=== PATIENT | female | born 1945 | race Caucasian/White ===

== ENCOUNTER 2016-10-18 21:33 | Emergency (ER) | payer MEDICARE ==
[2016-10-18 22:40] LABS: #Basophils 0.2 thou/uL (0.0-0.2); #Eosinphils 0.3 thou/uL (0.0-0.7); #Lymphocytes 3.2 thou/uL (1.20-3.40); #Monocytes 1.1 thou/uL (0.11-0.59); #Neutrophils 9.6 thou/uL (1.40-6.50); %Basophils 1.6 % (0.0-1.0); %Eosinophils 2.4 % (0.0-10.0); %Lymphocytes 22.2 % (21.0-51.0); %Monocytes 7.6 % (0.0-10.0); %Neutrophils 66.3 % (42.0-75.0); Hemoglobin 13.8 g/dL (12.0-16.0); Mean Corpuscular HGB CONC 35.2 g/dL (32.0-36.0); Mean Corpuscular Hemoglobin 30.9 pg (27.0-31.0); Mean Corpuscular Volume 87.8 fl (81.0-99.0); Mean Platelet Volume 7.3 fL (7.4-10.4); Platelet Count 397 thou/uL (130-400); Red Blood Cell (RBC) Count 4.46 mill/uL (4.20-5.40); White Blood Cell (WBC) Count 14.5 thou/uL (4.8-10.8)
[2016-10-18 22:43] LABS: ALT (SGPT) 25 U/L (0-55); AST (SGOT) 22 U/L (5-34); Albumin 3.9 g/dL (3.4-4.8); Alkaline Phosphatase 80 U/L (40-150); Anion Gap 18 mmol/L (10-20); BUN (Urea Nitrogen) 9 mg/dL (9.8-20.1); Bilirubin, Total 0.5 mg/dL (0.2-1.2); Calc. Creatinine Clearance 0 mL/min (70-130); Calcium 9.3 mg/dL (7.8-10.44); Carbon Dioxide 27 mmol/L (23-31); Chloride 97 mmol/L (98-107); Estimated GFR-MDRD 72; Globulin 2.7 g/dL (2.4-3.5); Glucose 230 mg/dL (83-110); Protein, Total 6.6 g/dL (5.8-8.1); Sodium 139 mmol/L (136-145)
[2016-10-18 22:52] LABS: PTT 25.2 SEC (22.9-36.1); Prothrombin Time 13.3 SEC (12.0-14.7)
[2016-10-18 22:58] LABS: Potassium 2.7 mmol/L (3.5-5.1)
[2016-10-18] MEDS ORDERED: Potassium Chloride 20 MEQ TAB ONE (23:01)
[2016-10-18 23:07] LABS: CKMB 0.5 ng/mL (0-6.6); Troponin I Less than 0.010 ng/mL (< 0.028)
[2016-10-18] MEDS ORDERED: NS 0.9% w/ 40 MEQ KCL 1,000 ML IV ONE (23:21)
[2016-10-19 01:31] LABS: Bilirubin Negative (Negative); Blood, Urine Trace (Negative); Clarity Clear (Clear); Glucose, Urine (Dipstick) 250 mg/dL (Negative); Leukocyte Negative (Negative); Nitrite Negative (Negative); Protein, Urine (Dipstick) 30 mg/dL (Neg-Trace); Specific Gravity, Urine 1.015 (1.005-1.030); Urobilinogen 0.2 mg/dL (0.2-1.0)
[2016-10-19 01:37] LABS: Bacteria/HPF Rare-Few HPF (None Seen); Renal Epithelial 0-3 HPF (0-3); Squamous Epithelial 0-3 HPF (0-3); Transitional Epithelial 0-3 HPF (0-3)
[2016-10-19] MEDS ORDERED: Ciprofloxacin 500 MG TAB ONE (02:02)
--- NOTE | 2016-10-19 02:12 | ERRECORD ---
[facility] EMERGENCY RECORD HPI GENERAL (22:35 LLDO) CHIEF COMPLAINT: Patient presents for evaluation of came in by ems for vomiting, high bp, and headache. all these s-sx had resolved before arrival at the ed. pt now feels perfectly normal. did start taking a new medicine tonight and the sx started shortly after taking her first paroxetine dose. HISTORIAN: History provided by patient, History provided by patient's family, DAUGHTER. MECHANISM OF INJURY: Unknown mechanism, Mechanism of injury is unknown, No alcohol use associated with this incident, Drug use associated with this incident, No domestic violence associated with this incident. LOCATION: Symptoms are generalized. QUALITY: Pain is dull in nature, described as aching. SEVERITY: Maximum severity of symptoms moderate, Currently symptoms are moderate. TIME COURSE: Sudden onset of symptoms, Symptoms have resolved, are constant. RELIEVED BY: Patient's condition relieved by prescription medications, Patient's condition relieved by see triage note. ROS CONSTITUTIONAL: Historian reports fatigue. (22:40 LLDO) EYES: Negative eye review of systems, Historian denies eye pain, denies eye redness, denies eye discharge. (22:45 LLDO) ENT: Negative ears, nose, throat review of systems, Historian denies epistaxis, denies rhinorrhea, denies sinus pain, denies sore throat. (22:45 LLDO) CARDIOVASCULAR: Negative cardiovascular review of systems, Historian denies chest pain, no radiation, Historian denies diaphoresis, denies syncope. (22:45 LLDO) RESPIRATORY: Negative respiratory review of systems, Historian denies cough, denies shortness of breath, denies sputum. (22:45 LLDO) GI: Historian reports nausea, reports vomiting. (22:40 LLDO) GENITOURINARY FEMALE: Negative genitourinary review of systems, Historian denies dysuria, denies frequency, denies urgency. (22:45 LLDO) MUSCULOSKELETAL: Negative musculoskeletal review of systems, Historian denies arthralgias, denies back pain, denies injury, denies myalgias, denies neck pain. (22:45 LLDO) SKIN: Negative skin review of systems, Historian denies cellulitis, denies rash, denies skin changes, denies skin lesions. (22:45 LLDO) NEUROLOGIC: Historian denies confusion, denies dizziness, denies dysphasia, denies focal weakness, denies gait changes, reports headache, denies irritability, denies lethargy, denies mental status changes. (22:40 LLDO) HEMO/LYMPHATIC: Normal hematologic/lymphatic system review, &a-1R&a+25V*p+0X*[id number]*c202B*c15G*c2P*p-0X&a-25V&a+1R Name: Arlen Gan : 1945 F71 MedRec: [id number] AcctNum: [id number] Prepared: WedOct 19, 2016 02:16 by Interface Page 1 of 4 pMD [facility] EMERGENCY RECORD Historian denies abnormal blood clotting, denies gum bleeding, denies petechiae. (22:45 LLDO) ALLERGIC/IMMUNOLOGIC: Normal allergy/immunologic system review, Historian denies eczema, denies environmental allergies, denies food allergies. (22:45 LLDO) PSYCHIATRIC: Negative psychiatric review of systems, Historian denies alcohol abuse, denies anxiety, denies depression, denies drug abuse, denies hallucinations. (22:45 LLDO) NOTES: All systems reviewed, negative except as described above. (22:40 LLDO) PAST MEDICAL HISTORY MEDICAL HISTORY: Notes: HTN, DM. (22:05 JDEA) FEMALE SURGICAL HISTORY: Patient's surgical history is not relevant to the management of the case. (22:05 JDEA) PSYCHIATRIC HISTORY: Notes: depression. (22:05 JDEA) SOCIAL HISTORY: Patient denies alcohol use, Patient denies drug use, Patient has no smoking history, Lives at home, with family. (22:05 JDEA) NOTES: Nursing records reviewed, Agree with nursing records, Medication list reviewed. (22:44 LLDO) KNOWN ALLERGIES No Known Drug Allergy CURRENT MEDICATIONS lisinopril: TABLET : Strength - 20 mg : ORAL Patient Dose: 20 mg Oral once a day. (21:56 JDEA) PARoxetine HCl: TABLET : Strength - 10 mg : ORAL Patient Dose: 10 mg Oral once a day. (21:56 JDEA) metFORMIN: TABLET : Strength - 1,000 mg : ORAL Patient Dose: 1 tab(s) Oral 2 times a day (before meals). (21:57 JDEA) VITAL SIGNS VITAL SIGNS: BP: 175/82, Pulse: 107, Resp: 20, Temp: 96.8 (Oral), Pain: 0, O2 sat: 94 on Room Air, Time: 10/18/2016 21:41. (21:41 JDEA) BP: 168/74, Pulse: 94, Resp: 20, Pain: 0, O2 sat: 96 on RA, Time: 10/18/2016 23:56. (23:56 JDEA) BP: 152/78, Pulse: 90, Resp: 18, Pain: 0, O2 sat: 100 on Room Air, Time: 10/19/2016 01:24. (WedOct 19, 2016 01:24 JDEA) PHYSICAL EXAM CONSTITUTIONAL: Vital signs reviewed, Patient afebrile, Pulse, tachycardic, 107, Blood pressure, BP ELEVATED SLIGHTLY: 175/82, Respiratory rate normal, Patient appears non toxic, Patient appears in &a-1R&a+25V*p+0X*q0040E*c202B*c15G*c2P*p-0X&a-25V&a+1R Name: Arlen Gan : 1945 F71 MedRec: [id number] AcctNum: [id number] Prepared: WedOct 19, 2016 02:16 by Interface Page 2 of 4 pMD [facility] EMERGENCY RECORD pain, in moderate pain distress, but now pain is gone, Patient alert and oriented to person, place and time. (22:41 LLDO) HEAD: Head exam normal, Head exam included findings of head atraumatic, normocephalic. (22:45 LLDO) EYES: Eye exam normal, Eye exam included findings of eyelids normal to inspection, Pupils equally round and reactive to light, Extraocular muscles intact. (22:45 LLDO) ENT: ENT exam normal, Ear exam normal, Nose exam normal. (22:45 LLDO) NECK: Neck exam normal, Neck exam included findings of normal range of motion, Trachea midline, no meningeal signs, no tenderness. (22:45 LLDO) RESPIRATORY CHEST: Respiratory exam included findings of no respiratory distress, Breath sounds clear, Chest exam included findings of chest movement symmetrical, Chest expansion equal, no tenderness. (22:41 LLDO) CARDIOVASCULAR: Cardiovascular exam included findings of heart rate regular rate and rhythm, Heart sounds normal, Point of maximal impulse normal, Bilateral blood pressures normal in both arms. (22:41 LLDO) ABDOMEN FEMALE: Abdominal exam included findings of abdomen nontender, Bowel sounds normal, Liver normal, Spleen normal, no distension, no mass, no pulsatile masses, no peritoneal signs. (22:41 LLDO) BACK: Back exam normal, Back exam included findings of normal inspection, range of motion normal. (22:45 LLDO) UPPER EXTREMITY: Upper extremity exam normal, Upper extremity exam included findings of inspection normal, Range of motion normal. (22:45 LLDO) LOWER EXTREMITY: Lower extremity exam normal, Lower extremity exam included findings of inspection normal, Range of motion normal. (22:45 LLDO) NEURO: Blessing coma scale 15, Neuro exam findings include patient oriented to person, place and time, Speech normal, Gait normal, Memory normal, Cranial nerves intact, Deep tendon reflexes normal, no focal motor deficits, no focal sensory deficits, no cerebellar deficits, no nystagmus. (22:44 LLDO) SKIN: Skin exam normal, Skin exam included findings of skin warm, dry, and normal in color, no rash. (22:45 LLDO) PSYCHIATRIC: Psychiatric exam normal, Psychiatric exam included findings of patient oriented to person place and time, Normal affect. (22:45 LLDO) MEDICATION ADMINISTRATION SUMMARY Drug Name: Cipro tablet, Dose Ordered: 500 mg, Route: Oral, Status: Given, Time: 02:05 10/19/2016, Drug Name: *potassium chloride in 0.9%NaCl, Dose Ordered: 40 mEq, Route: IV Fluid Infusion, Status: Given, Time: 23:20 10/18/2016, &a-1R&a+25V*p+0X*u8040J*c202B*c15G*c2P*p-0X&a-25V&a+1R Name: Malik Arlen M : 1945 F71 MedRec: [id number] AcctNum: [id number] Prepared: WedOct 19, 2016 02:16 by Interface Page 3 of 4 pMD [facility] EMERGENCY RECORD Drug Name: K-Dur, Dose Ordered: 80 mg, Route: Oral, Status: Given, Time: 23:07 10/18/2016, *Additional information available in notes, Detailed record available in Medication Service section. PROBLEM LIST No recorded problems DIAGNOSIS (WedOct 19, 2016 01:59 LL) FINAL: PRIMARY: HYPOKALEMIA, ADDITIONAL: Type 2 Diabetes mellitus (NIDDM) - controlled with complications, UTI SITE NOT SPECIFIED. PRESCRIPTION (WedOct 19, 2016 02:02 LLDO) K-Dur: TABLET, EXT RELEASE, PARTICLES/CRYSTALS : 20 mEq : ORAL : Quantity: 1 Unit: tab(s) Route: ORAL Schedule: once a day (in the morning) Dispense: 60 Unit: tab(s) May substitute. Refills: 1 . NOTES: No Refills. Cipro tablet: TABLET : 500 mg : ORAL : Quantity: 1 Unit: tab(s) Route: ORAL Schedule: 2 times a day Dispense: 20 May substitute. Refills: No Refills . NOTES: ^s=No Refills No Refills. DISPOSITION PATIENT: Disposition Type: Discharge, Disposition: *Discharge Home. (WedOct 19, 2016 01:59 ABDIRASHID) Patient left the department. (WedOct 19, 2016 02:10 EMELY) Hood: EMELY=GONZÁLEZ Ansari, Lena MENDENHALL=MD Yuan, Michele &a-1R&a+25V*p+0X*y2223J*c202B*c15G*c2P*p-0X&a-25V&a+1R Name: Arlen Gan Adonay : 1945 F71 MedRec: [id number] AcctNum: [id number] Prepared: WedOct 19, 2016 02:16 by Interface Page 4 of 4 pMD [facility]TDD
--- NOTE | 2016-10-19 02:18 | PICIS ---
[facility] EMERGENCY RECORD TRIAGE ([place] Oct 18, 2016 21:44 JDEA) TRIAGE NOTES: PT IN FOR NAUSEA, NOTABLY HYPERTENSIVE FOR EMS, GIVEN ZOFRAN, NITRO, FLUIDS. ([place] Oct 18, 2016 21:44 JDEA) PATIENT: NAME: Arlen Gan, AGE: 71, GENDER: female, : Sat 1945, TIME OF GREET: WedOct 18, 2016 21:34, PREFERRED LANGUAGE: [place] Verdean, ETHNICITY: Not or , ECODE BILLING MAP: [facility], SSN: [id number], Zip Code: [address], KG WEIGHT: 70.31 (est.), , , PERSON ID: [id number], PCP: Jake LANG KERRY. ([place] Oct 18, 2016 21:44 JDEA) PHONE: . (22:16) COMPLAINT: NAUSEA, VOMITING. ([place] Oct 18, 2016 21:44 JDEA) ADMISSION: URGENCY: 2 Emergent, ADMISSION SOURCE: Home, TRANSPORT: AMBULANCE - [facility], BED: TRIAGE. ([place] Oct 18, 2016 21:44 JDEA) IMMUNIZATIONS: Flu vaccine up to date, Tetanus immunization up to date, Pneumococcal vaccine up to date. (22:05 JDEA) TRIAGE SCREENING: Patient denies suicidal ideation, Patient denies presence of domestic violence. (22:05 JDEA) PROVIDERS: TRIAGE NURSE: Lena Ansari RN. ([place] Oct 18, 2016 21:44 JDEA) VITAL SIGNS: BP 175/82, Pulse 107, Resp 20, Temp 96.8, (Oral), Pain 0, O2 Sat 94, on Room Air, Time 10/18/2016 21:41. (21:41 JDEA) PREVIOUS VISIT ALLERGIES: No Known Drug Allergy. ([place] Oct 18, 2016 21:44 JDEA) No Known Drug Allergy. (22:05 JDEA) KNOWN ALLERGIES No Known Drug Allergy CURRENT MEDICATIONS lisinopril: TABLET : Strength - 20 mg : ORAL Patient Dose: 20 mg Oral once a day. (21:56 JDEA) PARoxetine HCl: TABLET : Strength - 10 mg : ORAL Patient Dose: 10 mg Oral once a day. (21:56 JDEA) metFORMIN: TABLET : Strength - 1,000 mg : ORAL Patient Dose: 1 tab(s) Oral 2 times a day (before meals). (21:57 JDEA) VITAL SIGNS VITAL SIGNS: BP: 175/82, Pulse: 107, Resp: 20, Temp: 96.8 (Oral), Pain: 0, O2 sat: 94 on Room Air, Time: 10/18/2016 21:41. (21:41 JDEA) BP: 168/74, Pulse: 94, Resp: 20, Pain: 0, O2 sat: 96 on RA, Time: 10/18/2016 23:56. (23:56 JDEA) BP: 152/78, Pulse: 90, Resp: 18, Pain: 0, O2 sat: 100 on Room Air, Time: 10/19/2016 01:24. (WedOct 19, 2016 01:24 JDEA) &a-1R&a+25V*p+0X*p7736T*c202B*c15G*c2P*p-0X&a-25V&a+1R Name: Arlen Gan : 1945 F71 MedRec: [id number] AcctNum: [id number] Prepared: WedOct 19, 2016 02:21 by Interface Page 1 of 10 pMD [facility] EMERGENCY RECORD NURSING ASSESSMENT: CARDIOVASCULAR (22:08 JDEA) CONSTITUTIONAL: Complex assessment performed, Patient arrives, via stretcher, via [facility], Gait steady, History obtained from patient, Patient appears comfortable, Patient cooperative, Patient alert, Oriented to person, place and time, Skin warm, Skin dry, Skin normal in color, Mucous membranes pink, Mucous membranes moist, Patient complains of nausea and vomiting, pt in for complaints of nausea and vomiting and weakness, states that she had one episode and then felt better, ems states that she was hypertensive and not feeling well, they followed protocol for hypertension, administered Zofran, fluids of NS, nitro x 3, initial bp 194/114, s/p bp of 145/95. PAIN: denies pain at this time. CARDIOVASCULAR: Cardiovascular assessment findings include heart rate normal, Heart rhythm normal sinus, Heart sounds normal, S1, S2, Left radial pulse +3(easily palpated, considered normal), Right radial pulse +3(easily palpated, considered normal), Left dorsalis pedis pulse +3(easily palpated, considered normal), Right dorsalis pedis pulse +3(easily palpated, considered normal), No associated diaphoresis, no associated dyspnea. RESPIRATORY/CHEST: Breath sounds clear, Respiratory assessment findings include respiratory effort easy, Respirations regular, Conversing normally, Neck and chest exam findings include trachea midline, Chest expansion equal, Chest movement symmetrical, no signs of distress, no associated cough noted, no associated fever. NOTES: Patient tolerated procedure well. SAFETY: Side rails up, Cart/Stretcher in lowest position, Family at bedside, Call light within reach, Hospital ID band on. NURSING PROCEDURE: SENIOR ORACLE APPLICATIONS DEVELOPER (21:50 JDEA) PATIENT IDENTIFIER: Patient actively involved in identification process, Patient's identity verified by patient stating name, Patient's identity verified by patient stating date, Patient's identity verified by hospital ID bracelet. SENIOR ORACLE APPLICATIONS DEVELOPER: Cardiac monitoring indicated for ER INDICATION, Patient placed on secured entrance monitor, Patient placed on non-invasive blood pressure monitor, Patient placed on continuous pulse oximetry. FOLLOW-UP: After procedure, alarms set and on. NOTES: Patient tolerated procedure well. SAFETY: Side rails up, Cart/Stretcher in lowest position, Family at bedside, Call light within reach, Hospital ID band on. NURSING PROCEDURE: COMMUNICATIONS (22:59 JDEA) COMMUNICATIONS: Critical lab value, received at 2259, received from lab, Critical lab result: K 2.7, given to MD Bolden, results read back and verified. NOTES: Patient tolerated procedure well. SAFETY: Side rails up, Cart/Stretcher in lowest position, Family at bedside, Call light within reach, Hospital ID band on. &a-1R&a+25V*p+0X*d5858Q*c202B*c15G*c2P*p-0X&a-25V&a+1R Name: Arlen Gna : 1945 F71 MedRec: [id number] AcctNum: [id number] Prepared: WedOct 19, 2016 02:21 by Interface Page 2 of 10 pMD [facility] EMERGENCY RECORD NURSING PROCEDURE: DISCHARGE NOTE (WedOct 19, 2016 02:07 JDEA) DISCHARGE: Patient discharged to home, ambulating without assistance, family driving, accompanied by other family member, Summary of Care printed/ provided, Patient requested and was provided an electronic copy of Discharge Instructions, Transition record given to patient, Discharge instructions given to patient, Simple or moderate discharge teaching performed, Prescriptions given and instructions on side effects given, Above person(s) verbalized understanding of discharge instructions and follow-up care, Patient treated and evaluated by physician. BELONGINGS: Belongings and valuables with patient at time of discharge include:, Belongings remain with patient. NURSING PROCEDURE: EKG CHART (21:51 JDEA) PATIENT IDENTIFIER: Patient actively involved in identification process, Patient's identity verified by patient stating name, Patient's identity verified by patient stating date, Patient's identity verified by hospital ID bracelet. EK lead EKG performed on the left chest, done by LYDIA, first EKG. FOLLOW-UP: After procedure, EKG for interpretation given to Dr. MD BOLDEN. NOTES: Patient tolerated procedure well. SAFETY: Side rails up, Cart/Stretcher in lowest position, Family at bedside, Call light within reach, Hospital ID band on. NURSING PROCEDURE: IV (21:50 JDEA) PATIENT IDENITIFIER: Patient actively involved in identification process, Patient's identity verified by patient stating name, Patient's identity verified by patient stating date, Patient's identity verified by hospital ID bracelet. IV SITE 1: IV therapy indicated for hydration, IV therapy indicated for medication administration, IV established, to the left forearm, using a 20 gauge catheter, Saline lock established, Flushed with normal saline (mls): 10MLS, Notes: IT SUPPORT SPECIALIST. FOLLOW-UP SITE 1: After procedure, 2x3 ensure dressing applied, After procedure, no drainage at IV site, After procedure, no swelling at IV site, After procedure, no redness at IV site. NOTES: Patient tolerated procedure well. SAFETY: Side rails up, Cart/Stretcher in lowest position, Family at bedside, Call light within reach, Hospital ID band on. NURSING PROCEDURE: NURSE NOTES (23:56 JDEA) NURSES NOTES: Notes: pt aware currently awaiting disposition, family member at bedside at this time. denies needs for assist at this time. VITAL SIGNS: BP: 168, / 74, Pulse: 94, Resp: 20, Pain: 0, O2 sat: 96, on: RA, Time: 6. ORDER DETAILS &a-1R&a+25V*p+0X*z5319Q*c202B*c15G*c2P*p-0X&a-25V&a+1R Name: Arlen Gan : 1945 F71 MedRec: [id number] AcctNum: [id number] Prepared: WedOct 19, 2016 02:21 by Interface Page 3 of 10 pMD [facility] EMERGENCY RECORD Order Name: SENIOR ORACLE APPLICATIONS DEVELOPER ED, Status: Done, Time: 21:55 10/18/2016, User: EMELY, - Ordered for: Zenaida ., - Entered by: GONZÁLEZ Ansari, Lena - Tori Oct 18, 2016 21:55, - Quantity: 1, Order Name: Cardiac Profile w/CKMB & Troponin - I, Status: Active, Time: 22:34 10/18/2016, User: ABDIRASHID, - Ordered for: MD Bolden Lloyd, - Entered by: MD Bolden Lloyd [facility] Oct 18, 2016 22:34, - Quantity: 1, Order Name: CATH STRAIGHT ED, Status: Done, Time: 01:26 10/19/2016, User: EMELY, - Ordered for: MD Bolden Lloyd, - Entered by: GONZÁLEZ Ansari, Lena - [facility] Oct 19, 2016 01:26, - Quantity: 1, Order Name: CBC with Differential, Status: Active, Time: 22:00 10/18/2016, User: ABDIRASHID, - Ordered for: MD Bolden Lloyd, - Entered by: MD Bolden Lloyd Tori Oct 18, 2016 22:00, - Quantity: 1, Order Name: CK (CPK), Status: Active, Time: 22:34 10/18/2016, User: ABDIRASHID, - Ordered for: MD Bolden Lloyd, - Entered by: MD Bolden Lloyd - Sun Oct 18, 2016 22:34, - Quantity: 1, Order Name: Comprehensive Metabolic Panel, Status: Active, Time: 22:00 10/18/2016, User: ABDIRASHID, - Ordered for: MD Bolden Lloyd, - Entered by: MD Bolden Lloyd Tori Oct 18, 2016 22:00, - Quantity: 1, Order Name: Culture, Urine, Status: Active, Time: 22:00 10/18/2016, User: ABDIRASHID, - Ordered for: MD Bolden Lloyd, - Entered by: MD Bolden Lloyd Tori Oct 18, 2016 22:00, - Quantity: 1, Order Name: EKG 12 Lead in Emergency Room, Status: Active, Time: 21:55 10/18/2016, User: EMELY, - Ordered for: Ersmdo, ., - Entered by: GONZÁLEZ Ansari, [facility] Oct 18, 2016 21:55, - Quantity: 1, Order Name: ERRT Oxygen Usage ER, Status: Active, Time: 21:55 10/18/2016, User: EMELY, - Ordered for: Ersmdo, ., - Entered by: GONZÁLEZ Ansari, [facility] Oct 18, 2016 21:55, - Quantity: 1, Order Name: ERRT Pulse Oximeter ER, Status: Active, Time: 21:55 10/18/2016, User: EMELY, - Ordered for: Ersmdo, ., - Entered by: GONZÁLEZ Ansari, [facility] Oct 18, 2016 21:55, &a-1R&a+25V*p+0X*x4560Z*c202B*c15G*c2P*p-0X&a-25V&a+1R Name: Arlen Gan : 1945 F71 MedRec: [id number] AcctNum: [id number] Prepared: WedOct 19, 2016 02:21 by Interface Page 4 of 10 pMD [facility] EMERGENCY RECORD - Quantity: 1, Order Name: Protime with INR, Status: Active, Time: 22:34 10/18/2016, User: ABDIRASHID, - Ordered for: MD Bolden Lloyd, - Entered by: MD Bolden Lloyd Tori Oct 18, 2016 22:34, - Quantity: 1, Order Name: PTT, Status: Active, Time: 22:34 10/18/2016, User: ABDIRASHID, - Ordered for: MD Bolden Lloyd, - Entered by: MD Bolden Lloyd - Sun Oct 18, 2016 22:34, - Quantity: 1, Order Name: SALINE LOCK, Status: Done, Time: 21:55 10/18/2016, User: EMELY, - Ordered for: Tammy Estevez, - Entered by: GONZÁLEZ Ansari Justine - Sun Oct 18, 2016 21:55, - Quantity: 1, Order Name: Urinalysis w/ Rflx Microscopic, Status: Active, Time: 22:00 10/18/2016, User: ABDIRASHID, - Ordered for: MD Bolden Lloyd, - Entered by: MD Bolden Lloyd - Sun Oct 18, 2016 22:00, - Quantity: 1. MEDICATION ADMINISTRATION SUMMARY Drug Name: Cipro tablet, Dose Ordered: 500 mg, Route: Oral, Status: Given, Time: 02:05 10/19/2016, Drug Name: *potassium chloride in 0.9%NaCl, Dose Ordered: 40 mEq, Route: IV Fluid Infusion, Status: Given, Time: 23:20 10/18/2016, Drug Name: K-Dur, Dose Ordered: 80 mg, Route: Oral, Status: Given, Time: 23:07 10/18/2016, *Additional information available in notes, Detailed record available in Medication Service section. MEDICATION SERVICE Cipro tablet: Order: Cipro tablet (ciprofloxacin HCl) - Dose: 500 mg : Oral Schedule: Now Ordered by: Michele Bolden MD Entered by: Michele Bolden MD WedOct 19, 2016 02:00 , Acknowledged by: Lena Ansari RN WedOct 19, 2016 02:02 Documented as given by: Lena Ansari RN WedOct 19, 2016 02:05 Patient, Medication, Dose, Route and Time verified prior to administration. Amount given: 500mg, Site: Medication administered P.O., Correct patient, time, route, dose and medication confirmed prior to administration, Patient advised of actions and side-effects prior to administration, Allergies confirmed and medications reviewed prior to administration, Patient in position of comfort, Side rails up, Cart in lowest position, Family at bedside, Call light in reach. K-Dur: Order: K-Dur (potassium chloride) - Dose: 80 mg : Oral Schedule: Now &a-1R&a+25V*p+0X*w9024O*c202B*c15G*c2P*p-0X&a-25V&a+1R Name: Arlen Gan : 1945 F71 MedRec: [id number] AcctNum: [id number] Prepared: WedOct 19, 2016 02:21 by Interface Page 5 of 10 pMD [facility] EMERGENCY RECORD Ordered by: Michele Bolden MD Entered by: MD Tori Garcia Oct 18, 2016 22:59 , Acknowledged by: GONZÁLEZ Cisneros Oct 18, 2016 23:00 Documented as given by: GONZÁLEZ Cisneros Oct 18, 2016 23:07 Patient, Medication, Dose, Route and Time verified prior to administration. Amount given: 80mg, Site: Medication administered P.O., Correct patient, time, route, dose and medication confirmed prior to administration, Patient advised of actions and side-effects prior to administration, Allergies confirmed and medications reviewed prior to administration, Patient in position of comfort, Side rails up, Cart in lowest position, Family at bedside, Call light in reach. potassium chloride in 0.9%NaCl: Order: potassium chloride in 0.9%NaCl (potassium chloride/0.9 % sodium chloride) - Dose: 40 mEq : IV Fluid Infusion Notes: run in over 1 h Ordered by: Michele Bolden MD Entered by: MD Tori Garcia Oct 18, 2016 23:01 , Acknowledged by: GONZÁLEZ Cisneros Oct 18, 2016 23:20 Documented as given by: GONZÁLEZ Baird Oct 18, 2016 23:20 Patient, Medication, Dose, Route and Time verified prior to administration. Amount given: 40 MEQ IN 1000ML, IV SITE #1 IVPB or drip, initial infusion, Premixed, via primary tubing, on an IV pump, Catheter placement confirmed via flush prior to administration, IV site without signs or symptoms of infiltration during medication administration, No swelling during administration, No drainage during administration, IV flushed after administration, Correct patient, time, route, dose and medication confirmed prior to administration, Patient advised of actions and side-effects prior to administration, Allergies confirmed and medications reviewed prior to administration, Patient in position of comfort, Side rails up, Cart in lowest position, Family at bedside. : Follow Up : Response assessment performed, No signs or symptoms of allergic reaction noted, _IV SITE #1:_, IV fluid infusion discontinued, on WedOct 19, 2016 00:34, Total fluid hydration time IV site 1 1 hour, 15 minutes, ., Total amount infused: 1L. (WedOct 19, 2016 00:33 JDEA) HPI GENERAL (22:35 LLDO) CHIEF COMPLAINT: Patient presents for evaluation of came in by ems for vomiting, high bp, and headache. all these s-sx had resolved before arrival at the ed. pt now feels perfectly normal. did start taking a new medicine tonight and the sx started shortly after taking her first paroxetine dose. HISTORIAN: History provided by patient, History provided by patient's family, DAUGHTER. MECHANISM OF INJURY: Unknown mechanism, Mechanism of injury is unknown, No alcohol use associated with this incident, Drug use associated with this incident, No domestic &a-1R&a+25V*p+0X*t2365J*c202B*c15G*c2P*p-0X&a-25V&a+1R Name: Arlen Gan : 1945 F71 MedRec: [id number] AcctNum: [id number] Prepared: WedOct 19, 2016 02:21 by Interface Page 6 of 10 pMD [facility] EMERGENCY RECORD violence associated with this incident. LOCATION: Symptoms are generalized. QUALITY: Pain is dull in nature, described as aching. SEVERITY: Maximum severity of symptoms moderate, Currently symptoms are moderate. TIME COURSE: Sudden onset of symptoms, Symptoms have resolved, are constant. RELIEVED BY: Patient's condition relieved by prescription medications, Patient's condition relieved by see triage note. ROS CONSTITUTIONAL: Historian reports fatigue. (22:40 LLDO) EYES: Negative eye review of systems, Historian denies eye pain, denies eye redness, denies eye discharge. (22:45 LLDO) ENT: Negative ears, nose, throat review of systems, Historian denies epistaxis, denies rhinorrhea, denies sinus pain, denies sore throat. (22:45 LLDO) CARDIOVASCULAR: Negative cardiovascular review of systems, Historian denies chest pain, no radiation, Historian denies diaphoresis, denies syncope. (22:45 LLDO) RESPIRATORY: Negative respiratory review of systems, Historian denies cough, denies shortness of breath, denies sputum. (22:45 LLDO) GI: Historian reports nausea, reports vomiting. (22:40 LLDO) GENITOURINARY FEMALE: Negative genitourinary review of systems, Historian denies dysuria, denies frequency, denies urgency. (22:45 LLDO) MUSCULOSKELETAL: Negative musculoskeletal review of systems, Historian denies arthralgias, denies back pain, denies injury, denies myalgias, denies neck pain. (22:45 LLDO) SKIN: Negative skin review of systems, Historian denies cellulitis, denies rash, denies skin changes, denies skin lesions. (22:45 LLDO) NEUROLOGIC: Historian denies confusion, denies dizziness, denies dysphasia, denies focal weakness, denies gait changes, reports headache, denies irritability, denies lethargy, denies mental status changes. (22:40 LLDO) HEMO/LYMPHATIC: Normal hematologic/lymphatic system review, Historian denies abnormal blood clotting, denies gum bleeding, denies petechiae. (22:45 LLDO) ALLERGIC/IMMUNOLOGIC: Normal allergy/immunologic system review, Historian denies eczema, denies environmental allergies, denies food allergies. (22:45 LLDO) PSYCHIATRIC: Negative psychiatric review of systems, Historian denies alcohol abuse, denies anxiety, denies depression, denies drug abuse, denies hallucinations. (22:45 LLDO) NOTES: All systems reviewed, negative except as described above. (22:40 LLDO) &a-1R&a+25V*p+0X*f8538Q*c202B*c15G*c2P*p-0X&a-25V&a+1R Name: Arlen Gan : 1945 F71 MedRec: [id number] AcctNum: [id number] Prepared: WedOct 19, 2016 02:21 by Interface Page 7 of 10 pMD [facility] EMERGENCY RECORD PAST MEDICAL HISTORY MEDICAL HISTORY: Notes: HTN, DM. (22:05 JDEA) FEMALE SURGICAL HISTORY: Patient's surgical history is not relevant to the management of the case. (22:05 JDEA) PSYCHIATRIC HISTORY: Notes: depression. (22:05 JDEA) SOCIAL HISTORY: Patient denies alcohol use, Patient denies drug use, Patient has no smoking history, Lives at home, with family. (22:05 JDEA) NOTES: Nursing records reviewed, Agree with nursing records, Medication list reviewed. (22:44 LLDO) PHYSICAL EXAM CONSTITUTIONAL: Vital signs reviewed, Patient afebrile, Pulse, tachycardic, 107, Blood pressure, BP ELEVATED SLIGHTLY: 175/82, Respiratory rate normal, Patient appears non toxic, Patient appears in pain, in moderate pain distress, but now pain is gone, Patient alert and oriented to person, place and time. (22:41 LLDO) HEAD: Head exam normal, Head exam included findings of head atraumatic, normocephalic. (22:45 LLDO) EYES: Eye exam normal, Eye exam included findings of eyelids normal to inspection, Pupils equally round and reactive to light, Extraocular muscles intact. (22:45 LLDO) ENT: ENT exam normal, Ear exam normal, Nose exam normal. (22:45 LLDO) NECK: Neck exam normal, Neck exam included findings of normal range of motion, Trachea midline, no meningeal signs, no tenderness. (22:45 LLDO) RESPIRATORY CHEST: Respiratory exam included findings of no respiratory distress, Breath sounds clear, Chest exam included findings of chest movement symmetrical, Chest expansion equal, no tenderness. (22:41 LLDO) CARDIOVASCULAR: Cardiovascular exam included findings of heart rate regular rate and rhythm, Heart sounds normal, Point of maximal impulse normal, Bilateral blood pressures normal in both arms. (22:41 LLDO) ABDOMEN FEMALE: Abdominal exam included findings of abdomen nontender, Bowel sounds normal, Liver normal, Spleen normal, no distension, no mass, no pulsatile masses, no peritoneal signs. (22:41 LLDO) BACK: Back exam normal, Back exam included findings of normal inspection, range of motion normal. (22:45 LLDO) UPPER EXTREMITY: Upper extremity exam normal, Upper extremity exam included findings of inspection normal, Range of motion normal. (22:45 LLDO) LOWER EXTREMITY: Lower extremity exam normal, Lower extremity exam included findings of inspection normal, Range of motion normal. (22:45 LLDO) NEURO: [place] coma scale 15, Neuro exam findings include patient &a-1R&a+25V*p+0X*a5651T*c202B*c15G*c2P*p-0X&a-25V&a+1R Name: Arlen Gan : 1945 F71 MedRec: [id number] AcctNum: [id number] Prepared: WedOct 19, 2016 02:21 by Interface Page 8 of 10 pMD [facility] EMERGENCY RECORD oriented to person, place and time, Speech normal, Gait normal, Memory normal, Cranial nerves intact, Deep tendon reflexes normal, no focal motor deficits, no focal sensory deficits, no cerebellar deficits, no nystagmus. (22:44 LLDO) SKIN: Skin exam normal, Skin exam included findings of skin warm, dry, and normal in color, no rash. (22:45 LLDO) PSYCHIATRIC: Psychiatric exam normal, Psychiatric exam included findings of patient oriented to person place and time, Normal affect. (22:45 LLDO) EVENTS TRANSFER: Triage to Emergency Triage. (WedOct 18, 2016 21:44 JDEA) Emergency Triage to Main ED -02. (21:46 JDEA) Emergency Main ED -02 to -01. (21:58 JDEA) Removed from Emergency Main ED -01. (WedOct 19, 2016 02:10 JDEA) PROBLEM LIST No recorded problems DIAGNOSIS (WedOct 19, 2016 01:59 LLDO) FINAL: PRIMARY: HYPOKALEMIA, ADDITIONAL: Type 2 Diabetes mellitus (NIDDM) - controlled with complications, UTI SITE NOT SPECIFIED. DISPOSITION PATIENT: Disposition Type: Discharge, Disposition: *Discharge Home. (WedOct 19, 2016 01:59 LLDO) Patient left the department. (WedOct 19, 2016 02:10 JDEA) INSTRUCTION (WedOct 19, 2016 02:03 LLDO) DISCHARGE: UTI CYSTITIS FEMALE ADULT, HYPOKALEMIA. FOLLOWUP: Jake LANG, DOMENIC, Obstetrics and Gynecology, [address] [place] [address], [phone], Follow up with Primary Care Physician as scheduled. SPECIAL: Follow-up with your PCP. PRESCRIPTION (WedOct 19, 2016 02:02 LLDO) K-Dur: TABLET, EXT RELEASE, PARTICLES/CRYSTALS : 20 mEq : ORAL : Quantity: 1 Unit: tab(s) Route: ORAL Schedule: once a day (in the morning) Dispense: 60 Unit: tab(s) May substitute. Refills: 1 . NOTES: No Refills. Cipro tablet: TABLET : 500 mg : ORAL : Quantity: 1 Unit: tab(s) Route: ORAL Schedule: 2 times a day Dispense: 20 May substitute. Refills: No Refills . NOTES: ^s=No Refills No Refills. IMAGING &a-1R&a+25V*p+0X*q5049Z*c202B*c15G*c2P*p-0X&a-25V&a+1R Name: Arlen Gan : 1945 F71 MedRec: [id number] AcctNum: [id number] Prepared: WedOct 19, 2016 02:21 by Interface Page 9 of 10 pMD [facility] EMERGENCY RECORD *DISCHARGE INSTRUCTIONS RECEIPT: Image captured from scanner. (WedOct 19, 2016 02:10 EMELY) Page 2 added. Image captured from scanner. (WedOct 19, 2016 02:10 EMELY) *SUPPLY CHARGE SHEET: Image captured from scanner. (WedOct 19, 2016 02:11 EMELY) ADMIN (WedOct 19, 2016 02:03 ABDIRASHID) DIGITAL SIGNATURE: MD Bolden Lloyd. MD Yuan, Michele. MD Bolden Lloyd. MD Bolden Lloyd. MD Bolden Lloyd. MD Bolden Lloyd. MD Bolden Lloyd. Hood: EMELY=GONZÁLEZ Ansari Justine LLDO=MD Bolden Lloyd &flakita-1R&a+25V*p+0X*q5757L*c202B*c15G*c2P*p-0X&a-25V&a+1R Name: Arlen Gan : 1945 F71 MedRec: [id number] AcctNum: [id number] Prepared: WedOct 19, 2016 02:21 by Interface Page 10 of 10 pMD [facility] MEDICATION RECONCILIATION You were seen in the Emergency Department on: WedOct 18, 2016 KNOWN ALLERGIES No Known Drug Allergy MEDICATIONS GIVEN WHILE IN THE EMERGENCY DEPARTMENT K-Dur (potassium chloride) - Dose: 80 milligram(s) : Oral potassium chloride in 0.9%NaCl (potassium chloride/0.9 % sodium chloride) - Dose: 40 milliequivalent(s) : IV Fluid Infusion Cipro tablet (ciprofloxacin HCl) - Dose: 500 milligram(s) : Oral HOME MEDICATIONS CONTINUE PRESCRIBED lisinopril : TABLET : Strength - 20 mg : ORAL Continue as prescribed Patient had been takin mg Oral once a day. metFORMIN : TABLET : Strength - 1,000 mg : ORAL Continue as prescribed Patient had been takin tab(s) Oral 2 times a day (before meals). PARoxetine HCl : TABLET : Strength - 10 mg : ORAL Continue as prescribed Patient had been takin mg Oral once a day. Notes from the emergency department Reviewed with family Reviewed with patient PRESCRIPTIONS (2) Printed (2) K-Dur : TABLET, EXT RELEASE, PARTICLES/CRYSTALS : 20 mEq : ORAL Quantity: 1, Unit: tab(s), Route: ORAL, Schedule: once a day (in the morning), Dispense: 60 Unit: tab(s) &a-1R&a+25V*p+0X*[id number]*c202B*c15G*c2P*p-0X&a-25V&a+1R Name: Arlen Gan : 1945 F71 MedRec: [id number] AcctNum: [id number] Prepared: WedOct 19, 2016 02:21 by Interface pMD ANA CRISTINA
== END 2016-10-19 02:06 | disposition home or self-care (01) ==
LOC: MADERS 21:33
DX: N39.0 Urinary tract infection, site not specified (principal); E87.6 Hypokalemia; E11.69 Type 2 diabetes mellitus with other specified complication; I10 Essential (primary) hypertension; F32.9 Major depressive disorder, single episode, unspecified; Z79.84 Long term (current) use of oral hypoglycemic drugs; Z79.899 Other long term (current) drug therapy
CPT/HCPCS: 36415; 51701; 80053; 81003; 81015; 82550; 82553; 84484; 85025; 85610; 85730; 87086; 96365; A4353

== ENCOUNTER 2016-10-23 13:42 | Emergency (ER) | payer MEDICARE ==
[~2016-10-23 13:42] MED LIST: Sodium Chloride 0.9% 1,000 ML BAG ONE; Sodium Chloride 0.9% 100 ML BAG ONE
[2016-10-23] MEDS ORDERED: Iopamidol 370 76% 100 ML VIAL ONE (14:07)
[2016-10-23 14:13] LABS: #Basophils 0.2 thou/uL (0.0-0.2); #Eosinphils 0.1 thou/uL (0.0-0.7); #Lymphocytes 3.2 thou/uL (1.20-3.40); #Monocytes 1.1 thou/uL (0.11-0.59); #Neutrophils 9.4 thou/uL (1.40-6.50); %Basophils 1.3 % (0.0-1.0); %Eosinophils 0.5 % (0.0-10.0); %Lymphocytes 22.7 % (21.0-51.0); %Neutrophils 67.6 % (42.0-75.0); Hemoglobin 15.8 g/dL (12.0-16.0); Mean Corpuscular HGB CONC 33.6 g/dL (32.0-36.0); Mean Corpuscular Hemoglobin 29.7 pg (27.0-31.0); Mean Corpuscular Volume 88.4 fl (81.0-99.0); Mean Platelet Volume 7.3 fL (7.4-10.4); Platelet Count 485 thou/uL (130-400); RBC Distribution Width 12.2 % (11.5-14.5); Red Blood Cell (RBC) Count 5.32 mill/uL (4.20-5.40); White Blood Cell (WBC) Count 13.9 thou/uL (4.8-10.8)
[2016-10-23] MEDS ORDERED: Ondansetron HCl/PF 4 MG/2 ML Vial ONE ×2 (14:17→19:01)
[2016-10-23 14:30] LABS: ALT (SGPT) 36 U/L (0-55); AST (SGOT) 31 U/L (5-34); Albumin 4.4 g/dL (3.4-4.8); Alkaline Phosphatase 76 U/L (40-150); Anion Gap 20 mmol/L (10-20); BUN (Urea Nitrogen) 10 mg/dL (9.8-20.1); Bilirubin, Total 0.8 mg/dL (0.2-1.2); Calc. Creatinine Clearance 0 mL/min (70-130); Calcium 9.7 mg/dL (7.8-10.44); Carbon Dioxide 25 mmol/L (23-31); Chloride 97 mmol/L (98-107); Estimated GFR-MDRD 71; Globulin 2.8 g/dL (2.4-3.5); Glucose 137 mg/dL (83-110); Lipase 34 U/L (8-78); Potassium 3.6 mmol/L (3.5-5.1); Protein, Total 7.2 g/dL (5.8-8.1); Sodium 138 mmol/L (136-145)
[2016-10-23 14:41] LABS: CKMB 0.5 ng/mL (0-6.6); Troponin I Less than 0.010 ng/mL (< 0.028)
[2016-10-23 14:49] LABS: Bilirubin Negative (Negative); Blood, Urine Negative (Negative); Clarity Clear (Clear); Glucose, Urine (Dipstick) Negative (Negative); Leukocyte Negative (Negative); Nitrite Negative (Negative); Protein, Urine (Dipstick) Trace mg/dL (Neg-Trace); Specific Gravity, Urine 1.025 (1.005-1.030); Urobilinogen 0.2 mg/dL (0.2-1.0); pH, Urine 5.5 (5.0-9.0)
--- NOTE | 2016-10-23 15:46 | CT ---
CT OF THE ABDOMEN AND PELVIS WITH CONTRAST: COMPARISON: None. HISTORY: Nausea and vomiting for a week. TECHNIQUE: Multiple contiguous axial images were obtained in a CT of the abdomen and pelvis with contrast. Cor onal reformats were performed. FINDINGS: The liver, gallbladder, and kidneys, adrenal glands, spleen, and pancreas are unremarkable. No free air, free fluid, or stranding changes are seen in the abdomen and pelvis. The reproductive organs are unremarkable. The large and small bowel are unremarkable. Atherosclerotic calcifications are seen in the aorta. No abdominal or pelvic lymphadenopathy are se en. Degenerative changes are seen in the spine. The visualized inferior thorax and abdominal wall soft tissues are unremarkable. IMPRESSION: No evidence of acute intraabdominal/pelvic abnormality. POS: H
[2016-10-23] MEDS ORDERED: cefTRIAXone\\ROCEPHIN 1 GM VIAL ONE (18:27)
--- NOTE | 2016-10-23 19:17 | ERRECORD ---
[facility] EMERGENCY RECORD HPI NAUSEA/VOMITING/DIARRHEA (14:29 ABUS) CHIEF COMPLAINT: Patient presents for evaluation of nausea, Patient presents for evaluation of vomiting. HISTORIAN: History provided by patient, History provided by patient's family, 71 yr old F here with ongoing N/V since Wednesday and in the contex of known or recent UTI now on cipro. She also has DM and HTN that has been difficult to control. No fever, CT/CP, SOB. LOCATION FEMALE: Symptoms are generalized. SEVERITY: Currently symptoms are mild, Current severity of pain rated as 0/10. TIME COURSE: Gradual onset of symptoms, 5, days priror to arrival. ASSOCIATED WITH FEMALE: Associated with urinary tract infection signs or symptoms. EXACERBATED BY: Patient's condition exacerbated by food. RELIEVED BY: Patient's condition relieved by nothing. ROS (14:30 ABUS) CONSTITUTIONAL: Negative constitutional review of systems, Historian denies chills, denies fever. EYES: Negative eye review of systems, Historian denies eye pain, denies vision changes. ENT: Negative ears, nose, throat review of systems, Historian denies rhinorrhea, denies sore throat, denies voice changes. CARDIOVASCULAR: Negative cardiovascular review of systems, Historian denies chest pain, denies palpitations. RESPIRATORY: Negative respiratory review of systems, Historian denies cough, denies shortness of breath. GI: Historian reports nausea, reports vomiting. GENITOURINARY FEMALE: Negative genitourinary review of systems, Historian denies dysuria, denies frequency. MUSCULOSKELETAL: Negative musculoskeletal review of systems, Historian denies back pain, denies fall, denies injury. SKIN: Negative skin review of systems, Historian denies rash, denies skin changes. NEUROLOGIC: Negative neurologic review of systems, Historian denies headache, denies mental status changes, denies paralysis, denies paresthesias, denies sensory changes. HEMO/LYMPHATIC: Normal hematologic/lymphatic system review, Historian denies abnormal blood clotting. ALLERGIC/IMMUNOLOGIC: Normal allergy/immunologic system review, Historian denies frequent infections. PAST MEDICAL HISTORY (13:58 [facility]) MEDICAL HISTORY: Flu vaccine not up to date, Tetanus not up to date, Pneumococcal vaccine not up to date, Notes: HTN, DM. FEMALE SURGICAL HISTORY: Surgical history of appendectomy, TUBAL LIGATION, HERNIA REMOVAL. PSYCHIATRIC HISTORY: Notes: depression. SOCIAL HISTORY: Patient denies alcohol use, Patient denies &a-1R&a+25V*p+0X*[id number]*c152B*c15G*c2P*p-0X&a-25V&a+1RName: Arlen Gan : F71 MedRec: [id number] AcctNum: [id number] Prepared: WedOct 23, 2016 19:54 by Interface Page [address] [facility] EMERGENCY RECORD drug use, Patient has no smoking history, Lives at home, with family. KNOWN ALLERGIES No Known Drug Allergy CURRENT MEDICATIONS (13:55 CJEF) lisinopril: TABLET : Strength - 20 mg : ORAL Patient Dose: 20 mg Oral once a day. metFORMIN: TABLET : Strength - 1,000 mg : ORAL Patient Dose: 1 tab(s) Oral 2 times a day (before meals). Cipro: TABLET : Strength - 500 mg : ORAL Patient Dose: 1 tab(s) Oral 2 times a day. Lantus: CARTRIDGE (ML) : Strength - 100 unit/mL : SUBCUTANEOUS Patient Dose: Unknown. VITAL SIGNS VITAL SIGNS: Pulse: 83, Resp: 18, Temp: 97.5 (Tympanic), Pain: 0, O2 sat: 95 on Room Air, Time: 10/23/2016 13:55. (13:55 CJEF) BP: 165/72, Time: 10/23/2016 13:59. (13:59 CJEF) BP: 185/73, Pulse: 83, Resp: 18, O2 sat: 95 on Room Air, Time: 10/23/2016 14:09. (14:09 CJEF) BP: 178/70, Pulse: 77, Resp: 18, Pain: 0, O2 sat: 96 on Room Air, Time: 10/23/2016 14:33. (14:33 CJEF) BP: 176/65, Pulse: 82, Resp: 18, Pain: 0, O2 sat: 95 on Room Air, Time: 10/23/2016 15:42. (15:42 CJEF) BP: 173/86, Pulse: 76, Resp: 18, Pain: 0, O2 sat: 99 on Room Air, Time: 10/23/2016 16:04. (16:04 CJEF) Temp: 98.4 (Tympanic), Time: 10/23/2016 16:15. (16:15 CJEF) BP: 156/78, Pulse: 81, Resp: 15, Temp: 98.5 (Tympanic), Pain: 0, O2 sat: 95 on Room Air, Time: 10/23/2016 17:50. (17:50 CJEF) BP: 148/73, Pulse: 77, Resp: 18, Pain: 0, O2 sat: 94 on Room Air, Time: 10/23/2016 18:33. (18:33 CJEF) BP: 150/65, Pulse: 80, Resp: 18, Temp: 98.6 (Oral), Pain: 0, O2 sat: 96 on Room Air, Time: 10/23/2016 19:03. (19:03 CJEF) PHYSICAL EXAM (14:30 ABUS) CONSTITUTIONAL: Vital signs reviewed, Patient afebrile, Pulse normal, Blood pressure normal, Respiratory rate normal, Patient appears non toxic, Patient appears pain free, Patient alert and oriented to person, place and time. HEAD: Head exam normal, Head exam included findings of head atraumatic, normocephalic. EYES: Eye exam normal, Eye exam included findings of eyelids normal to inspection, Pupils equally round and reactive to light, Extraocular muscles intact, no nystagmus. ENT: ENT exam normal, Ear exam normal, external ear normal, &a-1R&a+25V*p+0X*b6456C*c152B*c15G*c2P*p-0X&a-25V&a+1RName: Arlen Gan : F71 MedRec: [id number] AcctNum: [id number] Prepared: WedOct 23, 2016 19:54 by Interface Page [address] [facility] EMERGENCY RECORD tympanic membranes normal, no bleeding, Pharynx exam normal, Uvula exam normal, Tonsil exam normal, Mouth exam normal, mucous membranes moist, teeth normal. NECK: Neck exam normal, Neck exam included findings of normal range of motion, Trachea midline, no meningeal signs, no cervical adenopathy, no tenderness. RESPIRATORY CHEST: Respiratory and chest exam normal, Respiratory exam included findings of no respiratory distress, Breath sounds clear. CARDIOVASCULAR: Cardiovascular assessment normal, Cardiovascular exam included findings of heart rate regular rate and rhythm, Heart sounds normal. ABDOMEN FEMALE: Abdominal exam included findings of abdomen nontender, Bowel sounds normal, no distension, no mass, no pulsatile masses, no peritoneal signs, no rigidity, no guarding, no rebound, Rovsing's sign absent. BACK: Back exam normal, Back exam included findings of normal inspection, range of motion normal, no tenderness. UPPER EXTREMITY: Upper extremity exam normal, Upper extremity exam included findings of inspection normal, Range of motion normal, Motor strength normal, Sensation intact, Radial pulse normal. LOWER EXTREMITY: Lower extremity exam normal, Lower extremity exam included findings of inspection normal, Range of motion normal, Motor strength normal, Sensation intact, Posterior tibial pulse normal, Pedal pulse normal. NEURO: Neuro exam normal, Neuro exam findings include patient oriented to person, place and time, Speech normal, Gait normal, Cranial nerves intact, no focal motor deficits, no focal sensory deficits. SKIN: Skin exam normal, Skin exam included findings of skin warm, dry, and normal in color, no rash. PSYCHIATRIC: Psychiatric exam normal, Normal affect. EKG INTERPRETATION (15:40 ABUS) 12 LEAD EKG INTERPRETATION: 12 lead EKG interpreted by Emergency Department Physician at time of study, 12 lead EKG shows normal sinus rhythm, Rate (beats per minute): 82, with no ectopics, Conduction normal, ST segments normal, T waves, Leads affected: III, Leads affected: aVf, [place] normal, Clinical impression:, non-specific EKG. RADIOLOGYINTERPRETATION (15:43 ABUS) ABDOMEN: Abdomen/pelvis CT scan, with contrast negative, no abdominal aortic aneurysm, no appendicitis, no diverticulitis, no kidney stones, no injuries, no mass, no obstruction, no free air, no hydronephrosis. HUNTING AND FISHING GUIDE: Preliminary review of CT scans by, ED Physician, Radiologist. MEDICATION ADMINISTRATION SUMMARY &a-1R&a+25V*p+0X*k1433C*c152B*c15G*c2P*p-0X&a-25V&a+1RName: Arlen Gan : F71 MedRec: [id number] AcctNum: [id number] Prepared: WedOct 23, 2016 19:54 by Interface Page [address] [facility] EMERGENCY RECORD Drug Name: Zofran intravenous, Dose Ordered: 4 mg, Route: IV Push, Status: Given, Time: 19:02 10/23/2016, Drug Name: cefTRIAXone injection, Dose Ordered: 1 g, Route: IV Push, Status: Given, Time: 18:32 10/23/2016, Drug Name: Zofran intravenous, Dose Ordered: 4 mg, Route: IV Push, Status: Given, Time: 14:21 10/23/2016, Drug Name: *sodium chloride 0.9 % intravenous, Dose Ordered: 1 L, Route: IV Fluid Infusion, Status: Given, Time: 14:21 10/23/2016, *Additional information available in notes, Detailed record available in Medication Service section. DOCTOR NOTES (14:31 ABUS) TEXT: 71 yr old F here with ongoing N/V since Wednesday and in the contex of known or recent UTI now on cipro. Exam: Hypertensive. ill appearing. DDX: Pyelonephritis, UTI, pancreatitis, gastritis, SBO, volvulus Plan: IV, IV fluid, labs, antiemetics, likely need CT abd Dispo: D/c home since she has been able to eat and drink, feels normal and safe to go home as well has overall normal labs and CT. PROBLEM LIST No recorded problems DIAGNOSIS (18:05 ABUS) FINAL: PRIMARY: Nausea with vomiting. PRESCRIPTION (18:05 ABUS) promethazine oral: TABLET : 25 mg : ORAL : Quantity: 1 Unit: tab(s) Route: ORAL Schedule: every 8 hours PRN Dispense: 6 Unit: tab(s) May substitute. Refills: No Refills . NOTES: No Refills. Zofran ODT: TABLET,DISINTEGRATING : 4 mg : ORAL : Quantity: 1 Unit: tab(s) Route: ORAL Schedule: every 6 hours PRN Dispense: 6 Unit: tab(s) May substitute. Refills: No Refills . NOTES: ^s=No Refills No Refills. DISPOSITION PATIENT: Disposition Type: Discharge, Disposition: *Discharge Home, Condition: Good. (18:05 ABUS) Patient left the department. (19:10 [facility]) Hood: JEFF=MD Reba, Gustavo CJEF=GONZÁLEZ Simon, Ines &a-1R&a+25V*p+0X*f9231M*c152B*c15G*c2P*p-0X&a-25V&a+1RName: Arlen Gan : F71 MedRec: [id number] AcctNum: [id number] Prepared: WedOct 23, 2016 19:54 by Interface Page 4 of 4 pMD MTDD
--- NOTE | 2016-10-23 19:23 | PICIS ---
[facility] EMERGENCY RECORD TRIAGE (13:53 CJEF) TRIAGE NOTES: PT WAS IN LAST WEDNESDAY NIGHT FOR ELEVATED BP. PT WAS ALSO SEEN FOR SAME AT PCP. PT WAS CHANGED ON HER MEDS. PT STILL WITH N/V, NOT EATING WELL, HAS A UTI, ELEVATED BGL AND BP. PT HERE TODAY FOR CONTINUED N/V AND INABILITY TO KEEP THINGS DOWN. (13:53 CJEF) PATIENT: NAME: Arlen Gan, AGE: 71, GENDER: female, : Sat 1945, TIME OF GREET: WedOct 23, 2016 13:45, PREFERRED LANGUAGE: Maori, ETHNICITY: Not or , ECODE BILLING MAP: [facility], SSN: [id number], Zip Code: [facility], KG WEIGHT: 63.50, PHONE: , , , PERSON ID: [id number], PCP: Jake LANG KERRY. (13:53 CJEF) COMPLAINT: VOMITING, CANNOT KEEP ANYTHING DOWN. (13:53 CJEF) ADMISSION: URGENCY: 3 Urgent, ADMISSION SOURCE: Home, TRANSPORT: Walk-in, BED: TRIAGE. (13:53 CJEF) ASSESSMENT: Assessment: CONTINUED N/V. (13:58 CJEF) PAIN: No complaint of pain. (13:58 CJEF) IMMUNIZATIONS: Flu vaccine not up to date, Tetanus not up to date, Pneumococcal vaccine not up to date. (13:58 CJEF) SIRS SCORING: Heart Rate 55-109 (0), Temp range 96.8-101.1 (0), respiratory rate 12-24 (0), Mental Status altered: no (0), Yes, Infection or Suspected Infection. (13:58 CJEF) SIRS NOTIFICATION: Yes, Infection or Suspected Infection. (13:58 CJEF) TRIAGE SCREENING: Patient denies suicidal ideation, Patient denies presence of domestic violence. (13:58 CJEF) PROVIDERS: TRIAGE NURSE: Ines Simon RN. (13:53 CJEF) VITAL SIGNS: Pulse 83, Resp 18, Temp 97.5, (Tympanic), Pain 0, O2 Sat 95, on Room Air, Time 10/23/2016 13:55. (13:55 CJEF) PREVIOUS VISIT ALLERGIES: No Known Drug Allergy. (13:53 CJEF) No Known Drug Allergy. (13:58 CJEF) KNOWN ALLERGIES No Known Drug Allergy CURRENT MEDICATIONS (13:55 CJEF) lisinopril: TABLET : Strength - 20 mg : ORAL Patient Dose: 20 mg Oral once a day. metFORMIN: TABLET : Strength - 1,000 mg : ORAL Patient Dose: 1 tab(s) Oral 2 times a day (before meals). Cipro: TABLET : Strength - 500 mg : ORAL Patient Dose: 1 tab(s) Oral 2 times a day. Lantus: CARTRIDGE (ML) : Strength - 100 unit/mL : SUBCUTANEOUS Patient Dose: Unknown. &a-1R&a+25V*p+0X*q2929N*c152B*c15G*c2P*p-0X&a-25V&a+1RName: Arlen Gan : F71 MedRec: [id number] AcctNum: [id number] Prepared: WedOct 23, 2016 20:01 by Interface Page 1 of 14 pMD [facility] EMERGENCY RECORD VITAL SIGNS VITAL SIGNS: Pulse: 83, Resp: 18, Temp: 97.5 (Tympanic), Pain: 0, O2 sat: 95 on Room Air, Time: 10/23/2016 13:55. (13:55 CJEF) BP: 165/72, Time: 10/23/2016 13:59. (13:59 CJEF) BP: 185/73, Pulse: 83, Resp: 18, O2 sat: 95 on Room Air, Time: 10/23/2016 14:09. (14:09 CJEF) BP: 178/70, Pulse: 77, Resp: 18, Pain: 0, O2 sat: 96 on Room Air, Time: 10/23/2016 14:33. (14:33 CJEF) BP: 176/65, Pulse: 82, Resp: 18, Pain: 0, O2 sat: 95 on Room Air, Time: 10/23/2016 15:42. (15:42 CJEF) BP: 173/86, Pulse: 76, Resp: 18, Pain: 0, O2 sat: 99 on Room Air, Time: 10/23/2016 16:04. (16:04 CJEF) Temp: 98.4 (Tympanic), Time: 10/23/2016 16:15. (16:15 CJEF) BP: 156/78, Pulse: 81, Resp: 15, Temp: 98.5 (Tympanic), Pain: 0, O2 sat: 95 on Room Air, Time: 10/23/2016 17:50. (17:50 CJEF) BP: 148/73, Pulse: 77, Resp: 18, Pain: 0, O2 sat: 94 on Room Air, Time: 10/23/2016 18:33. (18:33 CJEF) BP: 150/65, Pulse: 80, Resp: 18, Temp: 98.6 (Oral), Pain: 0, O2 sat: 96 on Room Air, Time: 10/23/2016 19:03. (19:03 CJEF) NURSING ASSESSMENT: ABDOMEN (13:58 CJEF) CONSTITUTIONAL: Complex assessment performed, Patient arrives ambulatory, Unsteady gait, Assistance to cart, History obtained from patient, Patient appears comfortable, Patient cooperative, Patient alert, Oriented to person, place and time, Skin warm, Skin dry, Skin normal in color, Mucous membranes pink, Mucous membranes moist, Patient, poorly groomed, PT WAS IN LAST WEDNESDAY NIGHT FOR ELEVATED BP. PT WAS ALSO SEEN FOR SAME AT PCP. PT WAS CHANGED ON HER MEDS. PT STILL WITH N/V, NOT EATING WELL, HAS A UTI, ELEVATED BGL AND BP. PT HERE TODAY FOR CONTINUED N/V AND INABILITY TO KEEP THINGS DOWN. PAIN: Patient rates pain as 0 out of 10. ABDOMEN: Abdomen assessment findings include abdomen symmetrical, Abdomen soft, non-tender, Associated with nausea, Associated with vomiting, history of vomiting, Number of times: 1, no associated diarrhea, no associated constipation. NOTES: Patient tolerated procedure well. SAFETY: Side rails up, Cart/Stretcher in lowest position, Family at bedside, Call light within reach, Hospital ID band on. NURSING ASSESSMENT: FALL RISK (14:15 CJEF) FALL RISK: Fall risk assessment findings include: no history of falls (0), No bed rest greater than 2 days (0), No use of level of consciousness altering agents with mentation or cognitive changes (0), Change in blood pressure (1), Sensory deficits (1), Impaired mobility (3), No neurologic diagnosis (0), Elimination problems (3), No confusion (0), Total score 8, Fall risk. HENDRICH II FALL RISK: Hendrich II Fall Risk assessment findings include patient not confused, disoriented or impulsive, not &a-1R&a+25V*p+0X*u9929I*c152B*c15G*c2P*p-0X&a-25V&a+1RName: Arlen Gan : F71 MedRec: [id number] AcctNum: [id number] Prepared: WedOct 23, 2016 20:01 by Interface Page 2 of 14 pMD [facility] EMERGENCY RECORD symptomatic or depressed, altered elimination(1), no dizziness or vertigo, female, no antiepileptics (anticonvulsants) administered, no Benzodiazepines administered, Unable to rise without assistance during test(4), Total score 5, Score greater than 5. Patient is at high risk for fall. Fall risk precautions initiated. NURSING ASSESSMENT: SKIN (14:14 CJ) SKIN: Skin assessment findings include skin warm, Skin dry, Skin normal in color, Notes: BLANCHABLE REDNESS TO SACRUM. RIGO SCALE: (3) Sensory perception slightly limited, (3) Skin is occasionally moist, (3) Patient walks occasionally, (3) Slightly limited mobility, (2) Nutrition is probably inadequate, (2) Patient has potential problem moving, Rigo Risk Total: 16. NOTES: Patient tolerated procedure well. SAFETY: Side rails up, Cart/Stretcher in lowest position, Family at bedside, Call light within reach, Hospital ID band on. NURSING PROCEDURE: BEDSIDE SIRS TESTING (14:22 CJEF) SCORES: Heart Rate 55-109 (0), Temp range 96.8-101.1 (0), respiratory rate 12-24 (0), Latest WBC 3-14.9 (0), Mental Status altered: no (0), Yes, Infection or Suspected Infection. SIRS: Yes, Infection or Suspected Infection. NURSING PROCEDURE: FINANCIAL COORDINATOR (14:03 CJEF) PATIENT IDENTIFIER: Patient actively involved in identification process, Patient's identity verified by patient stating name, Patient's identity verified by patient stating date. FINANCIAL COORDINATOR: Cardiac monitoring indicated for N/V, Patient placed on radiation monitor, Heart rate: 73, showing normal sinus rhythm, Patient placed on non-invasive blood pressure monitor, Patient placed on continuous pulse oximetry, Adult/pediatric oxisensor applied. FOLLOW-UP: After procedure, alarms set and on, After procedure, patient tolerating monitoring. NOTES: Patient tolerated procedure well. SAFETY: Side rails up, Cart/Stretcher in lowest position, Family at bedside, Call light within reach, Hospital ID band on. NURSING PROCEDURE: DISCHARGE NOTE (19:03 [facility]) DISCHARGE: Patient discharged to home, ambulating with assistance, family driving, accompanied by other family member, Summary of Care printed/ provided, Patient requested and was provided an electronic copy of Discharge Instructions, Transition record given to patient, Discharge instructions given to patient, Simple or moderate discharge teaching performed, Prescriptions given and instructions on side effects given, Medication reconciliation form given, Above person(s) verbalized understanding of discharge instructions and follow-up care, Patient treated and evaluated by physician. &a-1R&a+25V*p+0X*b4793I*c152B*c15G*c2P*p-0X&a-25V&a+1RName: Arlen Gan : F71 MedRec: [id number] AcctNum: [id number] Prepared: WedOct 23, 2016 20:01 by Interface Page 3 of 14 pMD [facility] EMERGENCY RECORD BELONGINGS: Belongings remain with patient. NOTES: Patient tolerated procedure well. SAFETY: Side rails up, Cart/Stretcher in lowest position, Family at bedside, Call light within reach, Hospital ID band on. NURSING PROCEDURE: EKG CHART (14:13 [facility]) PATIENT IDENTIFIER: Patient actively involved in identification process, Patient's identity verified by patient stating name, Patient's identity verified by patient stating date. EKG: EKG indicated for N/V, 12 lead EKG performed on the left chest, done by KARYNA CLAUDIO, first EKG. FOLLOW-UP: After procedure, EKG for interpretation given to Dr. LUIS. NOTES: Patient tolerated procedure well. SAFETY: Side rails up, Cart/Stretcher in lowest position, Family at bedside, Call light within reach, Hospital ID band on. NURSING PROCEDURE: IV PATIENT IDENITIFIER: Patient actively involved in identification process, Patient's identity verified by patient stating name, Patient's identity verified by patient stating date. (14:05 CJEF) IV SITE 1: IV therapy indicated for hydration, IV therapy indicated for medication administration, IV established, to the left antecubital, using an 18 gauge catheter, in one attempt, IV site prepped with CHLORAPREP. (14:05 CJEF) FOLLOW-UP SITE 1: After procedure, sterile transparent dressing applied. (14:05 CJEF) After procedure, 2x2 dressing applied, IV discontinued, due to patient being discharged, catheter intact. (19:03 CJEF) NOTES: Patient tolerated procedure well. (14:05 CJEF) SAFETY: Side rails up, Cart/Stretcher in lowest position, Family at bedside, Call light within reach, Hospital ID band on. (14:05 CJEF) NURSING PROCEDURE: NURSE NOTES NURSES NOTES: Patient in no apparent distress, Patient resting quietly, Notes: PT RESTING IN BED QUIETLY WITH FAMILY AT BEDSIDE. NO DISTRESS NOTED. (14:35 CJEF) Patient in no apparent distress, Patient resting quietly, Notes: PT RESTING IN BED QUIETLY WITH FAMILY AT BEDSIDE. NO DISTRESS NOTED. (15:41 CJEF) Patient in no apparent distress, Patient resting quietly, Notes: PT GIVEN NIC CRACKERS AND WATER FOR PO CHALLENGE,. (15:51 CJEF) Notes: PT STILL TOLERATING PO CHALLENGE WELL. PT DENIES ANY N/V. (16:35 CJEF) Patient in no apparent distress, Patient resting quietly, Notes: PT RESTING IN BED QUIETLY WITH FAMILY AT BEDSIDE. NO DISTRESS NOTED. (17:49 CJEF) NURSING PROCEDURE: PO CHALLENGE (16:03 CJEF) &a-1R&a+25V*p+0X*f4718S*c152B*c15G*c2P*p-0X&a-25V&a+1RName: Malik Arlen : F71 MedRec: [id number] AcctNum: [id number] Prepared: WedOct 23, 2016 20:01 by Interface Page 4 of 14 pMD [facility] EMERGENCY RECORD PATIENT IDENTIFIER: Patient actively involved in identification process, Patient's identity verified by patient stating name, Patient's identity verified by patient stating date. PO CHALLENGE: Oral fluid challenge indicated for follow up on anti-emetics given, Oral challenge performed, patient given water, amount (mL) 75 ML, Oral challenge performed, patient given, NIC CRACKERS, X4 CRACKERS. FOLLOW-UP: After procedure, patient tolerated oral challenge. NOTES: Patient tolerated procedure well. SAFETY: Side rails up, Cart/Stretcher in lowest position, Family at bedside, Call light within reach, Hospital ID band on. NURSING PROCEDURE: URINE COLLECTION (14:33 [facility]) PATIENT IDENTIFIER: Patient actively involved in identification process, Patient's identity verified by patient stating name, Patient's identity verified by patient stating date. URINE COLLECTION FEMALE: Urine collected by straight cath, using a 5 fr catheter kit, in one attempt, urine yellow in color, and clear. NOTES: Patient tolerated procedure well. SAFETY: Side rails up, Cart/Stretcher in lowest position, Family at bedside, Call light within reach, Hospital ID band on. ORDER DETAILS Order Name: FINANCIAL COORDINATOR ED, Status: Done, Time: 14:16 10/23/2016, User: GAMAL, - Ordered for: MD Luis Anthony, - Entered by: GONZÁLEZ Simon, Ines - [facility] Oct 23, 2016 14:16, - Quantity: 1, Order Name: Cardiac Profile w/CKMB & Troponin - I, Status: Active, Time: 13:58 10/23/2016, User: JEFF, - Ordered for: MD Luis Anthony, - Entered by: MD Luis Anthony - [facility] Oct 23, 2016 13:58, - Quantity: 1, Order Name: CATH STRAIGHT ED, Status: Done, Time: 14:32 10/23/2016, User: GAMAL, - Ordered for: MD Luis Anthony, - Entered by: GONZÁLEZ Simon, Ines - [facility] Oct 23, 2016 14:32, - Quantity: 1, Order Name: CBC with Differential, Status: Active, Time: 13:58 10/23/2016, User: JEFF, - Ordered for: MD Luis Anthony, - Entered by: MD Luis Anthony - [facility] Oct 23, 2016 13:58, - Quantity: 1, Order Name: Comprehensive Metabolic Panel, Status: Active, Time: 13:58 10/23/2016, User: ABUS, - Ordered for: MD Luis Anthony, - Entered by: MD Lius Anthony - WedOct 23, 2016 13:58, - Quantity: 1, Order Name: CT Abdomen Pelvis W Con, Status: Active, Time: 14:44 &a-1R&a+25V*p+0X*k6310H*c152B*c15G*c2P*p-0X&a-25V&a+1RName: Arlen Gan : F71 MedRec: [id number] AcctNum: [id number] Prepared: WedOct 23, 2016 20:01 by Interface Page 5 of 14 pMD [facility] EMERGENCY RECORD 10/23/2016, User: ABUS, - Ordered for: MD Luis Anthony, - Entered by: MD Luis Anthony - WedOct 23, 2016 14:44, - Quantity: 1, Order Name: EKG 12 Lead in Emergency Room, Status: Active, Time: 13:58 10/23/2016, User: ABUS, - Ordered for: MD Luis Anthony, - Entered by: MD Luis Anthony - WedOct 23, 2016 13:58, - Quantity: 1, Order Name: Lactic Acid with repeat, Status: Active, Time: 13:58 10/23/2016, User: ABUS, - Ordered for: MD Luis Anthony, - Entered by: MD Luis Anthony - WedOct 23, 2016 13:58, - Quantity: 1, Order Name: Lipase, Status: Active, Time: 13:58 10/23/2016, User: ABUS, - Ordered for: MD Luis Anthony, - Entered by: MD Luis Anthony - WedOct 23, 2016 13:58, - Quantity: 1, Order Name: SALINE LOCK, Status: Done, Time: 14:08 10/23/2016, User: CJEF, - Ordered for: MD Luis Anthony, - Entered by: MD Luis Anthony - WedOct 23, 2016 13:58, - Quantity: 1, Order Name: Urinalysis w/ Rflx Microscopic, Status: Active, Time: 13:58 10/23/2016, User: JEFF, - Ordered for: MD Luis Anthony, - Entered by: MD Luis Anthony - WedOct 23, 2016 13:58, - Quantity: 1. MEDICATION ADMINISTRATION SUMMARY Drug Name: Zofran intravenous, Dose Ordered: 4 mg, Route: IV Push, Status: Given, Time: 19:02 10/23/2016, Drug Name: cefTRIAXone injection, Dose Ordered: 1 g, Route: IV Push, Status: Given, Time: 18:32 10/23/2016, Drug Name: Zofran intravenous, Dose Ordered: 4 mg, Route: IV Push, Status: Given, Time: 14:21 10/23/2016, Drug Name: *sodium chloride 0.9 % intravenous, Dose Ordered: 1 L, Route: IV Fluid Infusion, Status: Given, Time: 14:21 10/23/2016, *Additional information available in notes, Detailed record available in Medication Service section. MEDICATION SERVICE cefTRIAXone injection: Order: cefTRIAXone injection (ceftriaxone sodium) - Dose: 1 g : IV Push Schedule: Now Ordered by: Gustavo Luis MD Entered by: Gustavo Luis MD WedOct 23, 2016 18:03 Documented as given by: Ines Simon RN WedOct 23, 2016 18:32 Patient, Medication, Dose, Route and Time verified prior to administration. &a-1R&a+25V*p+0X*i2395C*c152B*c15G*c2P*p-0X&a-25V&a+1RName: Arlen Gan : F71 MedRec: [id number] AcctNum: [id number] Prepared: WedOct 23, 2016 20:01 by Interface Page 6 of 14 pMD [facility] EMERGENCY RECORD Amount given: 1 G, IV SITE #1 IVPB or drip, subsequent infusion, IVPB mixed in: 100ml, Fluid: 0.9NS, via primary tubing, via pump tubing, Awake and alert- acceptable, Connections checked prior to administration, Line traced prior to administration, Catheter placement confirmed via flush prior to administration, IV site without signs or symptoms of infiltration during medication administration, No swelling during administration, No drainage during administration, IV flushed after administration, Correct patient, time, route, dose and medication confirmed prior to administration, Patient advised of actions and side-effects prior to administration, Allergies confirmed and medications reviewed prior to administration, Patient tolerated procedure well, Patient in position of comfort, Side rails up, Cart in lowest position, Family at bedside. : Follow Up : Response assessment performed, No signs or symptoms of allergic reaction noted, _IV SITE #1:_, Medication infusion discontinued, on WedOct 23, 2016 19:01, 30 minutes, ., Total amount infused: 100ML, Advised not to ambulate without assistance, Patient in position of comfort, Side rails up, Cart in lowest position, Family at bedside. (19:01 [facility]) sodium chloride 0.9 % intravenous: Order: sodium chloride 0.9 % intravenous (0.9 % sodium chloride) - Dose: 1 L : IV Fluid Infusion Schedule: Now Notes: (Bolus) Ordered by: Gustavo Luis MD Entered by: Gustavo Luis MD WedOct 23, 2016 13:58 Documented as given by: Ines Simon RN WedOct 23, 2016 14:21 Patient, Medication, Dose, Route and Time verified prior to administration. Amount given: 1 L, IV SITE #1 IV fluids established for hydration, IV SITE #1 into left antecubital, IV SITE #1 1st bag hung, IV SITE #1 bolus of 1000 ml established, via primary tubing, Awake and alert- acceptable, Connections checked prior to administration, Line traced prior to administration, Catheter placement confirmed via flush prior to administration, IV site without signs or symptoms of infiltration during medication administration, No swelling during administration, No drainage during administration, IV flushed after administration, Correct patient, time, route, dose and medication confirmed prior to administration, Patient advised of actions and side-effects prior to administration, Allergies confirmed and medications reviewed prior to administration, Patient tolerated procedure well, Patient in position of comfort, Side rails up, Cart in lowest position, Family at bedside. : Follow Up : Response assessment performed, No signs or symptoms of allergic reaction noted, _IV SITE #1:_, IV fluid infusion discontinued, on WedOct 23, 2016 15:43, Total fluid hydration time IV site 1 1 hour, 25 minutes, ., Total amount infused: 1 L, Advised not to ambulate without assistance, Patient in position of comfort, Side rails up, Cart in lowest position, Family at bedside. (15:43 [facility]) Zofran intravenous: Order: Zofran intravenous (ondansetron HCl) &a-1R&a+25V*p+0X*w5126D*c152B*c15G*c2P*p-0X&a-25V&a+1RName: Arlen Gan : F71 MedRec: [id number] AcctNum: [id number] Prepared: WedOct 23, 2016 20:01 by Interface Page 7 of 14 pMD [facility] EMERGENCY RECORD - Dose: 4 mg : IV Push Schedule: Now Ordered by: Gustavo Luis MD Entered by: Gustavo Luis MD WedOct 23, 2016 13:59 Documented as given by: Ines Simon RN WedOct 23, 2016 14:21 Patient, Medication, Dose, Route and Time verified prior to administration. Amount given: 4 MG, IV SITE #1 IVP, subsequent different medication, Slowly, Awake and alert- acceptable, Connections checked prior to administration, Line traced prior to administration, Catheter placement confirmed via flush prior to administration, IV site without signs or symptoms of infiltration during medication administration, No swelling during administration, No drainage during administration, IV flushed after administration, Correct patient, time, route, dose and medication confirmed prior to administration, Patient advised of actions and side-effects prior to administration, Allergies confirmed and medications reviewed prior to administration, Patient tolerated procedure well, Patient in position of comfort, Side rails up, Cart in lowest position, Family at bedside. : Follow Up : Response assessment performed, No signs or symptoms of allergic reaction noted, Advised not to ambulate without assistance, Patient in position of comfort, Side rails up, Cart in lowest position, Family at bedside. (15:43 [facility]) Zofran intravenous: Order: Zofran intravenous (ondansetron HCl) - Dose: 4 mg : IV Push Schedule: Now Ordered by: Gustavo Luis MD Entered by: Gustavo Luis MD WedOct 23, 2016 18:03 Documented as given by: Ines Simon RN WedOct 23, 2016 19:02 Patient, Medication, Dose, Route and Time verified prior to administration. Amount given: 4 MG, IV SITE #1 IVP, subsequent different medication, Slowly, Awake and alert- acceptable, Connections checked prior to administration, Line traced prior to administration, Catheter placement confirmed via flush prior to administration, IV site without signs or symptoms of infiltration during medication administration, No swelling during administration, No drainage during administration, IV flushed after administration, Correct patient, time, route, dose and medication confirmed prior to administration, Patient advised of actions and side-effects prior to administration, Allergies confirmed and medications reviewed prior to administration, Patient tolerated procedure well, Patient in position of comfort, Side rails up, Cart in lowest position, Family at bedside. HPI NAUSEA/VOMITING/DIARRHEA (14:29 ABUS) CHIEF COMPLAINT: Patient presents for evaluation of nausea, Patient presents for evaluation of vomiting. HISTORIAN: History provided by patient, History provided by patient's family, 71 yr old F here with ongoing N/V since Wednesday and in the contex of known or recent UTI now on cipro. She also has DM and HTN that has been difficult to control. No fever, CT/CP, &a-1R&a+25V*p+0X*l6205J*c152B*c15G*c2P*p-0X&a-25V&a+1RName: Arlen Gan : F71 MedRec: [id number] AcctNum: [id number] Prepared: WedOct 23, 2016 20:01 by Interface Page 8 of 14 pMD [facility] EMERGENCY RECORD SOB. LOCATION FEMALE: Symptoms are generalized. SEVERITY: Currently symptoms are mild, Current severity of pain rated as 0/10. TIME COURSE: Gradual onset of symptoms, 5, days priror to arrival. ASSOCIATED WITH FEMALE: Associated with urinary tract infection signs or symptoms. EXACERBATED BY: Patient's condition exacerbated by food. RELIEVED BY: Patient's condition relieved by nothing. ROS (14:30 ABUS) CONSTITUTIONAL: Negative constitutional review of systems, Historian denies chills, denies fever. EYES: Negative eye review of systems, Historian denies eye pain, denies vision changes. ENT: Negative ears, nose, throat review of systems, Historian denies rhinorrhea, denies sore throat, denies voice changes. CARDIOVASCULAR: Negative cardiovascular review of systems, Historian denies chest pain, denies palpitations. RESPIRATORY: Negative respiratory review of systems, Historian denies cough, denies shortness of breath. GI: Historian reports nausea, reports vomiting. GENITOURINARY FEMALE: Negative genitourinary review of systems, Historian denies dysuria, denies frequency. MUSCULOSKELETAL: Negative musculoskeletal review of systems, Historian denies back pain, denies fall, denies injury. SKIN: Negative skin review of systems, Historian denies rash, denies skin changes. NEUROLOGIC: Negative neurologic review of systems, Historian denies headache, denies mental status changes, denies paralysis, denies paresthesias, denies sensory changes. HEMO/LYMPHATIC: Normal hematologic/lymphatic system review, Historian denies abnormal blood clotting. ALLERGIC/IMMUNOLOGIC: Normal allergy/immunologic system review, Historian denies frequent infections. PAST MEDICAL HISTORY (13:58 CJEF) MEDICAL HISTORY: Flu vaccine not up to date, Tetanus not up to date, Pneumococcal vaccine not up to date, Notes: HTN, DM. FEMALE SURGICAL HISTORY: Surgical history of appendectomy, TUBAL LIGATION, HERNIA REMOVAL. PSYCHIATRIC HISTORY: Notes: depression. SOCIAL HISTORY: Patient denies alcohol use, Patient denies drug use, Patient has no smoking history, Lives at home, with family. PHYSICAL EXAM (14:30 ABUS) CONSTITUTIONAL: Vital signs reviewed, Patient afebrile, Pulse normal, Blood pressure normal, Respiratory rate normal, Patient appears non toxic, Patient appears pain free, Patient alert and &a-1R&a+25V*p+0X*r3127J*c152B*c15G*c2P*p-0X&a-25V&a+1RName: Arlen Gan : F71 MedRec: [id number] AcctNum: [id number] Prepared: WedOct 23, 2016 20:01 by Interface Page 9 of 14 pMD [facility] EMERGENCY RECORD oriented to person, place and time. HEAD: Head exam normal, Head exam included findings of head atraumatic, normocephalic. EYES: Eye exam normal, Eye exam included findings of eyelids normal to inspection, Pupils equally round and reactive to light, Extraocular muscles intact, no nystagmus. ENT: ENT exam normal, Ear exam normal, external ear normal, tympanic membranes normal, no bleeding, Pharynx exam normal, Uvula exam normal, Tonsil exam normal, Mouth exam normal, mucous membranes moist, teeth normal. NECK: Neck exam normal, Neck exam included findings of normal range of motion, Trachea midline, no meningeal signs, no cervical adenopathy, no tenderness. RESPIRATORY CHEST: Respiratory and chest exam normal, Respiratory exam included findings of no respiratory distress, Breath sounds clear. CARDIOVASCULAR: Cardiovascular assessment normal, Cardiovascular exam included findings of heart rate regular rate and rhythm, Heart sounds normal. ABDOMEN FEMALE: Abdominal exam included findings of abdomen nontender, Bowel sounds normal, no distension, no mass, no pulsatile masses, no peritoneal signs, no rigidity, no guarding, no rebound, Rovsing's sign absent. BACK: Back exam normal, Back exam included findings of normal inspection, range of motion normal, no tenderness. UPPER EXTREMITY: Upper extremity exam normal, Upper extremity exam included findings of inspection normal, Range of motion normal, Motor strength normal, Sensation intact, Radial pulse normal. LOWER EXTREMITY: Lower extremity exam normal, Lower extremity exam included findings of inspection normal, Range of motion normal, Motor strength normal, Sensation intact, Posterior tibial pulse normal, Pedal pulse normal. NEURO: Neuro exam normal, Neuro exam findings include patient oriented to person, place and time, Speech normal, Gait normal, Cranial nerves intact, no focal motor deficits, no focal sensory deficits. SKIN: Skin exam normal, Skin exam included findings of skin warm, dry, and normal in color, no rash. PSYCHIATRIC: Psychiatric exam normal, Normal affect. EVENTS TRANSFER: Triage to Emergency Triage. (WedOct 23, 2016 13:53 CJ) Emergency Triage to Main ED -05. (13:58 CJ) Removed from Emergency Main ED -05. (19:10 CJ) RADIOLOGYINTERPRETATION (15:43 ABUS) ABDOMEN: Abdomen/pelvis CT scan, with contrast negative, no abdominal aortic aneurysm, no appendicitis, no diverticulitis, no kidney stones, no injuries, no mass, no obstruction, no free air, no hydronephrosis. &a-1R&a+25V*p+0X*d3439J*c152B*c15G*c2P*p-0X&a-25V&a+1RName: Arlen Gan : F71 MedRec: [id number] AcctNum: [id number] Prepared: WedOct 23, 2016 20:01 by Interface Page 10 of 14 pMD [facility] EMERGENCY RECORD SPEECH THERAPY ASSISTANT: Preliminary review of CT scans by, ED Physician, Radiologist. EKG INTERPRETATION (15:40 ABUS) 12 LEAD EKG INTERPRETATION: 12 lead EKG interpreted by Emergency Department Physician at time of study, 12 lead EKG shows normal sinus rhythm, Rate (beats per minute): 82, with no ectopics, Conduction normal, ST segments normal, T waves, Leads affected: III, Leads affected: aVf, Chunky normal, Clinical impression:, non-specific EKG. DOCTOR NOTES (14:31 ABUS) TEXT: 71 yr old F here with ongoing N/V since Wednesday and in the contex of known or recent UTI now on cipro. Exam: Hypertensive. ill appearing. DDX: Pyelonephritis, UTI, pancreatitis, gastritis, SBO, volvulus Plan: IV, IV fluid, labs, antiemetics, likely need CT abd Dispo: D/c home since she has been able to eat and drink, feels normal and safe to go home as well has overall normal labs and CT. PROBLEM LIST No recorded problems DIAGNOSIS (18:05 ABUS) FINAL: PRIMARY: Nausea with vomiting. DISPOSITION PATIENT: Disposition Type: Discharge, Disposition: *Discharge Home, Condition: Good. (18:05 ABUS) Patient left the department. (19:10 [facility]) INSTRUCTION (18:06 ABUS) DISCHARGE: NAUSEA VOMITING 5YADULT. FOLLOWUP: Jake LANG, DOMENIC, Obstetrics and Gynecology, [address] [place] [address], [phone], Follow up with Primary Care Physician in 2-3 days. SPECIAL: As discussed in the ER before you left, please follow up with your primary care doctor or call the referral made for you here in the ED today to establish outpatient follow up for your medical care. Please come back sooner if you start to develop fever, worsening pain, vomiting, or symptoms that are new or symptoms the concern you. PRESCRIPTION (18:05 ABUS) promethazine oral: TABLET : 25 mg : ORAL : Quantity: 1 Unit: tab(s) Route: ORAL Schedule: every 8 hours PRN Dispense: 6 Unit: tab(s) May substitute. Refills: No Refills . NOTES: No Refills. Zofran ODT: TABLET,DISINTEGRATING : 4 mg : ORAL : Quantity: &a-1R&a+25V*p+0X*h7581M*c152B*c15G*c2P*p-0X&a-25V&a+1RName: Arlen Gan : F71 MedRec: [id number] AcctNum: [id number] Prepared: WedOct 23, 2016 20:01 by Interface Page 11 of 14 pMD [facility] EMERGENCY RECORD 1 Unit: tab(s) Route: ORAL Schedule: every 6 hours PRN Dispense: 6 Unit: tab(s) May substitute. Refills: No Refills . NOTES: ^s=No Refills No Refills. IMAGING *EKG: Image captured from scanner. (15:25 SFRE) *DISCHARGE INSTRUCTIONS RECEIPT: Image captured from scanner. (19:10 CJEF) Page 2 added. Image captured from scanner. (19:10 CJEF) *SUPPLY CHARGE SHEET: Image captured from scanner. (19:11 CJEF) ADMIN (19:47 ABUS) DIGITAL SIGNATURE: MD Luis Anthony. RESULTS RADIOLOGY: CT Abdomen Pelvis W Con Observe DT: WedOct 23, 2016 14:46, ABDPELV CT OF THE ABDOMEN AND PELVIS WITH CONTRAST: COMPARISON: None. HISTORY: Nausea and vomiting for a week. TECHNIQUE: Multiple contiguous axial images were obtained in a CT of the abdomen and pelvis with contrast. Cor onal reformats were performed. FINDINGS: The liver, gallbladder, and kidneys, adrenal glands, spleen, and pancreas are unremarkable. No free air, free fluid, or stranding changes are seen in the abdomen and pelvis. The reproductive organs are unremarkable. The large and small bowel are unremarkable. Atherosclerotic calcifications are seen in the aorta. No abdominal or pelvic lymphadenopathy are se en. Degenerative changes are seen in the spine. The visualized inferior thorax and abdominal wall soft tissues are unremarkable. IMPRESSION: &a-1R&a+25V*p+0X*k4936X*c152B*c15G*c2P*p-0X&a-25V&a+1RName: Arlen Gan : F71 MedRec: [id number] AcctNum: [id number] Prepared: WedOct 23, 2016 20:01 by Interface Page 12 of 14 pMD [facility] EMERGENCY RECORD No evidence of acute intraabdominal/pelvic abnormality. POS: [facility] . (16:05 CJEF) LABORATORY: Lactic Acid for Sepsis Collection DT: WedOct 23, 2016 14:11, Lactic Acid - Sepsis 1.0 mmol/L, Range (0.5-2.2). [facility] CBC with Differential Collection DT: WedOct 23, 2016 14:11, *White Blood Cell (WBC) Count 13.9 - H thou/uL, Range (4.8-10.8), Red Blood Cell (RBC) Count 5.32 mill/uL, Range (4.20-5.40), Hemoglobin 15.8 g/dL, Range (12.0-16.0), Hematocrit 47.0 %, Range (36.0-47.0), Mean Corpuscular Volume 88.4 fl, Range (81.0-99.0), Mean Corpuscular Hemoglobin 29.7 pg, Range (27.0-31.0), Mean Corpuscular HGB CONC 33.6 g/dL, Range (32.0-36.0), RBC Distribution Width 12.2 %, Range (11.5-14.5), *Platelet Count 485 - H thou/uL, Range (130-400), *Mean Platelet Volume 7.3 - L fL, Range (7.4-10.4), %Neutrophils 67.6 %, Range (42.0-75.0), %Lymphocytes 22.7 %, Range (21.0-51.0), %Monocytes 8.0 %, Range (0.0-10.0), %Eosinophils 0.5 %, Range (0.0-10.0), *%Basophils 1.3 - H %, Range (0.0-1.0), *#Neutrophils 9.4 - H thou/uL, Range (1.40-6.50), #Lymphocytes 3.2 thou/uL, Range (1.20-3.40), *#Monocytes 1.1 - H thou/uL, Range (0.11-0.59), #Eosinphils 0.1 thou/uL, Range (0.0-0.7), #Basophils 0.2 thou/uL, Range (0.0-0.2). (14:25 SFRE) Cardiac Profile w/CKMB & TropI Collection DT: WedOct 23, 2016 14:11, CKMB 0.5 ng/mL, Range (0-6.6), Troponin I Less than 0.010 ng/mL, Range (< 0.028), Reference Range , 0.00 - 0.028 ng/mL Negative 0.029 - 0.29 ng/mL , Indeterminate Greater or Equal to 0.3 ng/mL Strongly suggests AL , . (14:51 SFRE) Lipase Collection DT: WedOct 23, 2016 14:11, Lipase 34 U/L, Range (8-78). (14:51 SFRE) Comprehensive Metabolic Panel Collection DT: WedOct 23, 2016 14:11, Sodium 138 mmol/L, Range (136-145), Potassium 3.6 mmol/L, Range (3.5-5.1), *Chloride 97 - L mmol/L, Range (98-107), Carbon Dioxide 25 mmol/L, Range (23-31), Anion Gap 20 mmol/L, Range (10-20), BUN (Urea Nitrogen) 10 mg/dL, Range (9.8-20.1), Creatinine 0.80 mg/dL, Range (0.6-1.1), Estimated GFR-MDRD 71 , Reference Range for Estimated GFR: Greater than 90, mL/min/1.73 m2 &a-1R&a+25V*p+0X*f6049X*c152B*c15G*c2P*p-0X&a-25V&a+1RName: MalikArlen : F71 MedRec: [id number] AcctNum: [id number] Prepared: WedOct 23, 2016 20:01 by Interface Page 13 of 14 pMD [facility] EMERGENCY RECORD NOTE: The MDRD equation has not been validated for use, with the elderly (over 70 years of age), women, patients with, serious comorbid condition or persons with extremes of body size, muscle, mass, or nutritional status. , *Glucose 137 - H mg/dL, Range (83-110), Calcium 9.7 mg/dL, Range (7.8-10.44), Bilirubin, Total 0.8 mg/dL, Range (0.2-1.2), Protein, Total 7.2 g/dL, Range (5.8-8.1), NOTE: Plasma values are generally 0.3 to 0.5 g/dL higher than serum values, due to the presence of fibrinogen. , Albumin 4.4 g/dL, Range (3.4-4.8), Globulin 2.8 g/dL, Range (2.4-3.5), Alb/Glob Ratio 1.6 g/dL, Range (1.2-2.2), Alkaline Phosphatase 76 U/L, Range (40-150), AST (SGOT) 31 U/L, Range (5-34), ALT (SGPT) 36 U/L, Range (0-55). (14:51 SFRE) Urinalysis w/ Rflx Microscopic Collection DT: WedOct 23, 2016 14:49, Color Yellow , Range (Yellow), Clarity Clear , Range (Clear), Specific [place], Urine 1.025 , Range (1.005-1.030), pH, Urine 5.5 , Range (5.0-9.0), Leukocyte Negative , Range (Negative), Nitrite Negative , Range (Negative), Protein, Urine (Dipstick) Trace mg/dL, Range (Neg-Trace), Glucose, Urine (Dipstick) Negative mg/dL, Range (Negative), Ketone, Urine Negative mg/dL, Range (Negative), Urobilinogen 0.2 mg/dL, Range (0.2-1.0), Bilirubin Negative , Range (Negative), Blood, Urine Negative , Range (Negative). (15:09 SFRE) Hood: JEFF=MD Reba, Gustavo CJEF=GONZÁLEZ Simon, Ines SFRE=GONZÁLEZ Martinez, Dionna &a-1R&a+25V*p+0X*q8483T*c152B*c15G*c2P*p-0X&a-25V&a+1RName: Arlen Gan : F71 MedRec: [id number] AcctNum: [id number] Prepared: WedOct 23, 2016 20:01 by Interface Page 14 of 14 pMD [facility]
== END 2016-10-23 19:10 | disposition home or self-care (01) ==
LOC: MADERS 13:42
DX: R11.2 Nausea with vomiting, unspecified (principal); E11.9 Type 2 diabetes mellitus without complications; I10 Essential (primary) hypertension; F32.9 Major depressive disorder, single episode, unspecified; Z79.4 Long term (current) use of insulin; Z79.899 Other long term (current) drug therapy
CPT/HCPCS: 51701; 74177; 80053; 81003; 82553; 83605; 83690; 84484; 85025; 93005; 96361; 96365; 96375; 96376; A4353; J0696; J2405; J7050

== ENCOUNTER 2017-03-24 08:47 | Outpatient (CLI) | payer MEDICARE, MEDICAID ==
--- NOTE | 2017-03-24 12:28 | CT ---
CT ABDOMEN AND PELVIS WITH CONTRAST: Comparison: 10-23-16 History: Intermittent epigastric pain, off and on for two months. Technique: Multiple contiguous axial images were obtained in a CT of the abdomen and pelvis with con trast. PO contrast was administered. Coronal reformats were performed. FINDINGS: The liver contains a small stable hypodensity in the right lobe which is nonspecific and is subcenti meter in size. The gallbladder, kidneys, adrenal glands, spleen, and pancreas are unremarkable. No f ree air, free fluid, or stranding changes are seen in the abdomen or pelvis. The large and small bowel are unremarkable. The appendix is not definitely seen. Reproductive organs are unremarkable. No abdominal or pelvic lymphadenopathy are seen. Atherosclerotic calcifications are see in the aorta. No abdominal or pelvic lymphadenopathy are seen . Degenerative changes are seen in the spine. Visualized inferior thorax and abdominal wall soft tis sues are unremarkable. IMPRESSION: No evidence of acute intraabdominal/pelvic abnormality. POS: [facility]
[2017-03-24] MEDS ORDERED: Iopamidol 370 76% 100 ML VIAL ONE (14:00)
== END 2017-03-24 08:48 | disposition home or self-care (01) ==
LOC: MADCT 08:47
PROVIDERS: ATTEND Obstetrics & Gynecology
DX: R10.10 Upper abdominal pain, unspecified (principal)
CPT/HCPCS: 36415; 74177; 82565

== ENCOUNTER 2019-08-06 15:09 | Emergency (ER) | payer MEDICARE, MEDICAID ==
[2019-08-06 16:26] LABS: Bilirubin Negative (Negative); Blood, Urine Negative (Negative); Clarity Clear (Clear); Glucose, Urine (Dipstick) >=1000 mg/dL (Negative); Leukocyte Negative (Negative); Nitrite Negative (Negative); Protein, Urine (Dipstick) Negative (Neg-Trace)
[2019-08-06] MEDS ORDERED: Fluconazole 100 MG TAB ONE (18:47)
[2019-08-06] MEDS ORDERED: Phenazopyridine HCl 97.5 MG TABLET ONE (18:49)
== END 2019-08-06 19:10 | disposition home or self-care (01) ==
LOC: MADERS 15:09
DX: E11.65 Type 2 diabetes mellitus with hyperglycemia (principal); B37.3 Candidiasis of vulva and vagina; I10 Essential (primary) hypertension; F32.9 Major depressive disorder, single episode, unspecified
CPT/HCPCS: 36416; 81003; 87086; 99283

== ENCOUNTER 2020-03-25 16:53 | Emergency (ER) | payer MEDICARE, MEDICAID ==
[2020-03-25 18:05] LABS: #Basophils 0.3 thou/uL (0.0-0.2); #Eosinphils 0.2 thou/uL (0.0-0.7); #Lymphocytes 4.2 thou/uL (1.20-3.40); #Monocytes 1.5 thou/uL (0.11-0.59); #Neutrophils 10.6 thou/uL (1.40-6.50); %Basophils 1.6 % (0.0-1.0); %Eosinophils 1.2 % (0.0-10.0); %Lymphocytes 24.8 % (21.0-51.0); %Monocytes 8.9 % (0.0-10.0); %Neutrophils 63.5 % (42.0-75.0); Hemoglobin 14.6 g/dL (12.0-16.0); Mean Corpuscular HGB CONC 32.6 g/dL (32.0-36.0); Mean Corpuscular Hemoglobin 29.4 pg (27.0-31.0); Mean Corpuscular Volume 90.1 fL (78.0-98.0); Mean Platelet Volume 7.1 fL (7.4-10.4); Platelet Count 496 thou/uL (130-400); RBC Distribution Width 11.5 % (11.5-14.5); Red Blood Cell (RBC) Count 4.98 mill/uL (4.20-5.40); White Blood Cell (WBC) Count 16.7 thou/uL (4.8-10.8)
--- NOTE | 2020-03-25 18:08 | RAD ---
Chest AP view INDICATION: Chest pain COMPARISON: November 19, 2009 FINDINGS: Lungs: The lungs are clear Cardiac silhouette: Stable mild cardiomegaly Pulmonary vasculature: Normal Pleural spaces: No pleural effusion or pneumothorax is demonstrated. Upper abdomen: No abnormality seen. Osseous structures: No acute osseous abnormality. Additional findings: None. IMPRESSION: Stable mild cardiomegaly
[2020-03-25 18:20] LABS: ALT (SGPT) 16 U/L (8-55); AST (SGOT) 13 U/L (5-34); Albumin 4.1 g/dL (3.4-4.8); Alkaline Phosphatase 106 U/L (40-110); Anion Gap 15 mmol/L (10-20); BUN (Urea Nitrogen) 8 mg/dL (9.8-20.1); Bilirubin, Total 0.3 mg/dL (0.2-1.2); Calc. Creatinine Clearance 0 mL/min (70-130); Calcium 9.3 mg/dL (7.8-10.44); Carbon Dioxide 25 mmol/L (23-31); Chloride 97 mmol/L (98-107); Estimated GFR-MDRD 66; Globulin 3.1 g/dL (2.4-3.5); Glucose 171 mg/dL (83-110); Potassium 4.7 mmol/L (3.5-5.1); Protein, Total 7.2 g/dL (6.0-8.3); Sodium 132 mmol/L (136-145)
[2020-03-25 19:23] LABS: Bilirubin Negative (Negative); Blood, Urine Negative (Negative); Clarity Clear (Clear); Glucose, Urine (Dipstick) 100 mg/dL (Negative); Ketone, Urine Negative (Negative); Leukocyte Negative (Negative); Nitrite Negative (Negative); Protein, Urine (Dipstick) Negative (Neg-Trace); Specific Gravity, Urine 1.015 (1.005-1.030); Urobilinogen 0.2 mg/dL (Less than 2)
[2020-03-25] MEDS ORDERED: Nitrofurantoin Monohyd/M-Cryst 100 MG CAP ONE (20:21)
== END 2020-03-25 20:28 | disposition home or self-care (01) ==
LOC: MADERS 16:53
DX: R20.2 Paresthesia of skin (principal); T36.8X5A Adverse effect of other systemic antibiotics, initial encounter; E11.42 Type 2 diabetes mellitus with diabetic polyneuropathy; N64.4 Mastodynia; I10 Essential (primary) hypertension; F32.9 Major depressive disorder, single episode, unspecified; Z79.899 Other long term (current) drug therapy; Z79.4 Long term (current) use of insulin
CPT/HCPCS: 36415; 71045; 80053; 81003; 83605; 83880; 84484; 85025; 87086; 93005

== ENCOUNTER 2020-07-12 13:05 | Outpatient (CLI) | payer MEDICARE, MEDICAID ==
--- NOTE | 2020-07-12 13:59 | RAD ---
EXAM: CHEST TWO VIEWS 07/12/2020 1:56 PM HISTORY: Pneumonia COMPARISON: Prior exam dated July 01, 2020 FINDINGS: Lungs: There is improvement in the bilateral airspace disease. Residual scattered groundglass and in terstitial opacities remain. Heart: Mild cardiomegaly persists Pulmonary Vessels: Normal. Costophrenic Angles: Clear. Pneumothorax: None. Osseous Structures: Intact. Additional Findings: None. IMPRESSION: Improving bilateral pneumonia
== END 2020-07-12 13:06 | disposition home or self-care (01) ==
LOC: MADRAD 13:05
PROVIDERS: ATTEND Registered Nurse
DX: J18.9 Pneumonia, unspecified organism (principal)
CPT/HCPCS: 71046

== ENCOUNTER 2020-10-07 03:14 | Emergency (ER) | payer MEDICARE, MEDICAID ==
[2020-10-07] MEDS ORDERED: Ondansetron PF 4 MG/2 ML Vial ONE ×2 (03:53→07:10)
[2020-10-07] MEDS ORDERED: Sodium Chloride 0.9% 1,000 ML ONE (03:53)
[2020-10-07 04:19] LABS: ALT (SGPT) 18 U/L (8-55); AST (SGOT) 16 U/L (5-34); Albumin 3.6 g/dL (3.4-4.8); Alkaline Phosphatase 83 U/L (40-110); Anion Gap 16 mmol/L (10-20); BUN (Urea Nitrogen) 5 mg/dL (9.8-20.1); Bilirubin, Total 0.7 mg/dL (0.2-1.2); Calc. Creatinine Clearance 0 mL/min (70-130); Calcium 8.2 mg/dL (7.8-10.44); Carbon Dioxide 32 mmol/L (23-31); Chloride 95 mmol/L (98-107); Globulin 1.9 g/dL (2.4-3.5); Glucose 298 mg/dL (83-110); Lipase 13 U/L (8-78); Protein, Total 5.5 g/dL (6.0-8.3); Sodium 140 mmol/L (136-145)
[2020-10-07 04:33] LABS: Hemoglobin 14.5 g/dL (12.0-16.0); Red Blood Cell (RBC) Count 4.83 mill/uL (4.20-5.40); White Blood Cell (WBC) Count 11.5 thou/uL (4.8-10.8)
[2020-10-07 04:34] LABS: %Lymphocytes 18.1 % (21.0-51.0); %Neutrophils 70.6 % (42.0-75.0); Mean Corpuscular HGB CONC 33.9 g/dL (32.0-36.0); Mean Corpuscular Volume 88.7 fL (78.0-98.0); Mean Platelet Volume 6.7 fL (7.4-10.4); Platelet Count 408 thou/uL (130-400); RBC Distribution Width 11.1 % (11.5-14.5)
[2020-10-07 04:35] LABS: #Basophils 0.2 thou/uL (0.0-0.2); #Eosinphils 0.1 thou/uL (0.0-0.7); #Lymphocytes 2.1 thou/uL (1.20-3.40); #Neutrophils 8.1 thou/uL (1.40-6.50); %Basophils 1.6 % (0.0-1.0); %Eosinophils 0.8 % (0.0-10.0)
[2020-10-07 04:36] LABS: Clarity Clear (Clear)
[2020-10-07 04:37] LABS: Bilirubin Negative (Negative); Blood, Urine Negative (Negative); Glucose, Urine (Dipstick) 500 mg/dL (Negative); Ketone, Urine 15 mg/dL (Negative); Leukocyte Negative (Negative); Nitrite Negative (Negative); Protein, Urine (Dipstick) Negative (Neg-Trace); Urobilinogen 0.2 mg/dL (Less than 2); pH, Urine 7.5 (5.0-9.0)
[2020-10-07 04:42] LABS: Potassium 2.5 mmol/L (3.5-5.1)
[2020-10-07] MEDS ORDERED: Potassium Chloride 20 MEQ TAB ONE (04:49)
[2020-10-07] MEDS ORDERED: 1/2 NS w/KCL 20 mEq 1,000 ML ONE ×2 (04:50→04:53)
== END 2020-10-07 07:49 | disposition home or self-care (01) ==
LOC: MADERS 03:14
DX: E87.6 Hypokalemia (principal); R11.2 Nausea with vomiting, unspecified; E11.9 Type 2 diabetes mellitus without complications; I10 Essential (primary) hypertension; E78.5 Hyperlipidemia, unspecified; Z79.899 Other long term (current) drug therapy; Z79.4 Long term (current) use of insulin
CPT/HCPCS: 36416; 51701; 80053; 81003; 83690; 85025; 96365; 96366; 96375; 96376; J2405; J3480; J7050

== ENCOUNTER 2021-09-03 10:54 | Inpatient (IN) | payer MEDICARE, MEDICAID ==
[2021-09-03 17:39] LABS: Bilirubin Negative (Negative); Blood, Urine Trace (Negative); Glucose, Urine (Dipstick) Negative (Negative); Ketone, Urine Trace mg/dL (Negative); Leukocyte Large (Negative); Nitrite Negative (Negative); Protein, Urine (Dipstick) 30 mg/dL (Neg-Trace); Specific Gravity, Urine 1.015 (1.005-1.030)
[2021-09-03 17:42] LABS: Bacteria/HPF 3+ HPF (None Seen); Clarity Cloudy (Clear); Squamous Epithelial 0-3 HPF (0-3); Transitional Epithelial 0-3 HPF (None Seen)
[2021-09-03 17:43] LABS: Other Microscopic Description C&S SET UP
[2021-09-03] MEDS ORDERED: HYDROcodone/Acetaminophen 5/325 mg Tablet PO PRN (18:07)
[2021-09-03 18:11] LABS: RBC/HPF 0-3 HPF (0-3)
[2021-09-03] MEDS ORDERED: Dextrose 5% in Water 1,000 ML IV PRN (18:15)
[2021-09-03] MEDS ORDERED: Dextrose 50% Abboject 50 ML SYRINGE IVP PRN (18:15)
[2021-09-03] MEDS ORDERED: HumaLOG 300 UNITS/3 ML VIAL SC PRN (18:15)
[2021-09-03] MEDS: Metoprolol Tartrate 50 MG TAB PO SCH (20:17)
[2021-09-03] MEDS: Ciprofloxacin 500 MG TAB PO SCH (20:17)
[2021-09-04 05:16] LABS: #Basophils 0.2 thou/uL (0.0-0.2); #Eosinphils 0.1 thou/uL (0.0-0.7); #Monocytes 1.3 thou/uL (0.11-0.59); #Neutrophils 7.9 thou/uL (1.40-6.50); %Basophils 1.9 % (0.0-1.0); %Eosinophils 0.5 % (0.0-10.0); %Lymphocytes 24.2 % (21.0-51.0); %Monocytes 10.5 % (0.0-10.0); %Neutrophils 62.9 % (42.0-75.0); Hemoglobin 12.6 g/dL (12.0-16.0); Mean Corpuscular HGB CONC 33.2 g/dL (32.0-36.0); Mean Corpuscular Hemoglobin 30.2 pg (27.0-31.0); Mean Corpuscular Volume 90.9 fL (78.0-98.0); Mean Platelet Volume 7.1 fL (7.4-10.4); Platelet Count 345 thou/uL (130-400); RBC Distribution Width 11.1 % (11.5-14.5); Red Blood Cell (RBC) Count 4.19 mill/uL (4.20-5.40); White Blood Cell (WBC) Count 12.5 thou/uL (4.8-10.8)
[2021-09-04] MEDS: Ciprofloxacin 500 MG TAB PO SCH ×2 (05:22→20:19)
[2021-09-04 05:35] LABS: ALT (SGPT) 14 U/L (8-55); AST (SGOT) 13 U/L (5-34); Albumin 3.1 g/dL (3.4-4.8); Alkaline Phosphatase 81 U/L (40-110); Anion Gap 12 mmol/L (10-20); BUN (Urea Nitrogen) 9 mg/dL (9.8-20.1); Bilirubin, Total 0.9 mg/dL (0.2-1.2); Calc. Creatinine Clearance 66 mL/min (70-130); Calcium 8.7 mg/dL (7.8-10.44); Carbon Dioxide 26 mmol/L (23-31); Chloride 99 mmol/L (98-107); Cholesterol 180 mg/dl (< 200 Desired); Globulin 2.3 g/dL (2.4-3.5); Glucose 149 mg/dL (83-110); HDL Cholesterol 45 mg/dL (>60 Neg Risk); LDL Cholesterol, Calculated 115 mg/dL; Potassium 3.4 mmol/L (3.5-5.1); Protein, Total 5.4 g/dL (5.8-8.1); Sodium 134 mmol/L (136-145); Triglycerides 99 mg/dL (Less than 150)
[2021-09-04] MEDS: metFORMIN 500 MG TAB PO SCH (08:40)
[2021-09-04] MEDS: Metoprolol Tartrate 50 MG TAB PO SCH ×2 (08:40→20:19)
[2021-09-04] MEDS: Enoxaparin Sodium 30 MG/0.3 ML SYRINGE SC SCH (08:40)
[2021-09-04] MEDS: Lantus 1000 UNITS/10 ML VIAL SC SCH (08:40)
[2021-09-04] MEDS: Acetaminophen 325 MG TAB PO PRN (08:51)
[2021-09-04 11:28] LABS: Hemoglobin A1c 6.3 % (4.0-6.0)
[2021-09-04] MEDS: Ondansetron ODT 4 MG TAB PO PRN ×2 (14:42→21:47)
[2021-09-04] MEDS: Senokot S 8.6-50 MG TAB PO PRN (14:42)
[2021-09-05] MEDS: Ciprofloxacin 500 MG TAB PO SCH (05:47)
[2021-09-05] MEDS: Ondansetron ODT 4 MG TAB PO PRN (08:08)
[2021-09-05] MEDS: Acetaminophen 325 MG TAB PO PRN (08:08)
[2021-09-05] MEDS: Enoxaparin Sodium 30 MG/0.3 ML SYRINGE SC SCH (08:12)
[2021-09-05] MEDS: Metoprolol Tartrate 50 MG TAB PO SCH ×2 (08:12→20:08)
[2021-09-05] MEDS: metFORMIN 500 MG TAB PO SCH (08:13)
[2021-09-05] MEDS: Lantus 1000 UNITS/10 ML VIAL SC SCH (08:14)
[2021-09-05] MEDS: Cephalexin 500 MG CAP PO SCH (20:08)
[2021-09-06] MEDS: Acetaminophen 325 MG TAB PO PRN ×2 (05:35→20:09)
[2021-09-06] MEDS: Cephalexin 500 MG CAP PO SCH ×3 (08:40→20:09)
[2021-09-06] MEDS: Enoxaparin Sodium 30 MG/0.3 ML SYRINGE SC SCH (08:40)
[2021-09-06] MEDS: Metoprolol Tartrate 50 MG TAB PO SCH ×2 (08:40→20:09)
[2021-09-06] MEDS: Lantus 1000 UNITS/10 ML VIAL SC SCH (08:41)
[2021-09-07] MEDS: Lantus 1000 UNITS/10 ML VIAL SC SCH (08:43)
[2021-09-07] MEDS: Enoxaparin Sodium 30 MG/0.3 ML SYRINGE SC SCH (08:43)
[2021-09-07] MEDS: Metoprolol Tartrate 50 MG TAB PO SCH ×2 (08:44→19:55)
[2021-09-07] MEDS: Cephalexin 500 MG CAP PO SCH ×3 (08:44→19:55)
[2021-09-07] MEDS: Senokot S 8.6-50 MG TAB PO PRN (19:55)
[2021-09-08] MEDS: Acetaminophen 325 MG TAB PO PRN (05:06)
[2021-09-08] MEDS: Enoxaparin Sodium 30 MG/0.3 ML SYRINGE SC SCH (08:02)
[2021-09-08] MEDS: Cephalexin 500 MG CAP PO SCH ×3 (08:02→20:39)
[2021-09-08] MEDS: Metoprolol Tartrate 50 MG TAB PO SCH ×2 (08:02→20:39)
[2021-09-08] MEDS: Lantus 1000 UNITS/10 ML VIAL SC SCH (08:02)
[2021-09-08] MEDS ORDERED: Polyethylene Glycol 3350 17 GM Packet PO SCH (14:15)
[2021-09-08] MEDS ORDERED: Polyethylene Glycol 3350 17 GM Packet PO PRN (14:15)
[2021-09-09] MEDS: Enoxaparin Sodium 30 MG/0.3 ML SYRINGE SC SCH (08:09)
[2021-09-09] MEDS: Metoprolol Tartrate 50 MG TAB PO SCH ×2 (08:09→20:41)
[2021-09-09] MEDS: Cephalexin 500 MG CAP PO SCH ×3 (08:09→20:41)
[2021-09-09] MEDS: Senokot S 8.6-50 MG TAB PO PRN (08:10)
[2021-09-09] MEDS: Lantus 1000 UNITS/10 ML VIAL SC SCH (08:10)
[2021-09-09] MEDS: Ondansetron ODT 4 MG TAB PO PRN (10:20)
[2021-09-09 10:22] LABS: SARS-CoV-2 PCR by NAA Not Detected (NotDetected)
[2021-09-10] MEDS: Metoprolol Tartrate 50 MG TAB PO SCH ×2 (08:35→20:06)
[2021-09-10] MEDS: Cephalexin 500 MG CAP PO SCH ×3 (08:35→20:06)
[2021-09-10] MEDS: Senokot S 8.6-50 MG TAB PO SCH ×2 (08:35→20:06)
[2021-09-10] MEDS: Enoxaparin Sodium 30 MG/0.3 ML SYRINGE SC SCH (08:36)
[2021-09-10] MEDS: Lantus 1000 UNITS/10 ML VIAL SC SCH (08:36)
[2021-09-10] MEDS: Polyethylene Glycol 3350 17 GM Packet PO SCH (08:36)
[2021-09-11] MEDS: Acetaminophen 325 MG TAB PO PRN (00:42)
[2021-09-11] MEDS: Senokot S 8.6-50 MG TAB PO SCH ×2 (09:45→20:14)
[2021-09-11] MEDS: Metoprolol Tartrate 50 MG TAB PO SCH ×2 (09:45→20:15)
[2021-09-11] MEDS: Cephalexin 500 MG CAP PO SCH (09:45)
[2021-09-11] MEDS: Polyethylene Glycol 3350 17 GM Packet PO SCH ×2 (09:45→20:15)
[2021-09-11] MEDS: Enoxaparin Sodium 30 MG/0.3 ML SYRINGE SC SCH (09:46)
[2021-09-11] MEDS: Lantus 1000 UNITS/10 ML VIAL SC SCH (09:53)
[2021-09-12 05:26] LABS: Hemoglobin 12.8 g/dL (12.0-16.0); Platelet Count 523 thou/uL (130-400)
[2021-09-12] MEDS: Enoxaparin Sodium 30 MG/0.3 ML SYRINGE SC SCH (09:28)
[2021-09-12] MEDS: Senokot S 8.6-50 MG TAB PO SCH ×2 (09:28→21:24)
[2021-09-12] MEDS: Metoprolol Tartrate 50 MG TAB PO SCH ×2 (09:28→21:24)
[2021-09-12] MEDS: Acetaminophen 325 MG TAB PO PRN ×2 (09:29→22:49)
[2021-09-12] MEDS: Polyethylene Glycol 3350 17 GM Packet PO SCH ×2 (09:30→21:24)
[2021-09-12] MEDS: Lantus 1000 UNITS/10 ML VIAL SC SCH (09:30)
[2021-09-13] MEDS: Acetaminophen 325 MG TAB PO PRN (08:46)
[2021-09-13] MEDS: Senokot S 8.6-50 MG TAB PO SCH ×3 (08:46→21:20)
[2021-09-13] MEDS: Metoprolol Tartrate 50 MG TAB PO SCH ×2 (08:46→21:18)
[2021-09-13] MEDS: Polyethylene Glycol 3350 17 GM Packet PO SCH ×3 (08:47→21:20)
[2021-09-13] MEDS: Enoxaparin Sodium 30 MG/0.3 ML SYRINGE SC SCH (08:47)
[2021-09-13] MEDS: Lantus 1000 UNITS/10 ML VIAL SC SCH (08:48)
[2021-09-13] MEDS: Ondansetron ODT 4 MG TAB PO PRN (10:11)
[2021-09-14] MEDS: Acetaminophen 325 MG TAB PO PRN (05:15)
[2021-09-14] MEDS: Polyethylene Glycol 3350 17 GM Packet PO SCH ×2 (08:34→20:23)
[2021-09-14] MEDS: Enoxaparin Sodium 30 MG/0.3 ML SYRINGE SC SCH (08:34)
[2021-09-14] MEDS: Metoprolol Tartrate 50 MG TAB PO SCH ×2 (08:34→20:23)
[2021-09-14] MEDS: Lantus 1000 UNITS/10 ML VIAL SC SCH (08:34)
[2021-09-14] MEDS: Senokot S 8.6-50 MG TAB PO SCH (08:35)
[2021-09-14] MEDS ORDERED: Senokot S 8.6-50 MG TAB PO PRN (08:58)
[2021-09-15] MEDS: Acetaminophen 325 MG TAB PO PRN (00:41)
[2021-09-15] MEDS: Metoprolol Tartrate 50 MG TAB PO SCH ×2 (08:27→20:17)
[2021-09-15] MEDS: Lantus 1000 UNITS/10 ML VIAL SC SCH (08:27)
[2021-09-15] MEDS: Enoxaparin Sodium 30 MG/0.3 ML SYRINGE SC SCH (08:28)
[2021-09-15] MEDS ORDERED: Polyethylene Glycol 3350 17 GM Packet PO SCH (09:00)
[2021-09-15] MEDS: Ondansetron ODT 4 MG TAB PO PRN (09:46)
[2021-09-15 17:41] LABS: SARS-CoV-2 PCR by NAA Not Detected (NotDetected)
[2021-09-16] MEDS: Polyethylene Glycol 3350 17 GM Packet PO PRN (08:28)
[2021-09-16] MEDS: Metoprolol Tartrate 50 MG TAB PO SCH ×2 (08:28→20:22)
[2021-09-16] MEDS: Lantus 1000 UNITS/10 ML VIAL SC SCH (08:32)
[2021-09-16] MEDS: Enoxaparin Sodium 30 MG/0.3 ML SYRINGE SC SCH (08:32)
[2021-09-16] MEDS ORDERED: SEMAGLUTIDE 4 MG/3 ML SC SCH (16:00)
[2021-09-16] MEDS: SEMAGLUTIDE 4 MG/3 ML SC SCH (16:33)
[2021-09-17] MEDS: Metoprolol Tartrate 50 MG TAB PO SCH ×2 (08:22→20:16)
[2021-09-17] MEDS: Enoxaparin Sodium 30 MG/0.3 ML SYRINGE SC SCH (08:22)
[2021-09-17] MEDS: Lantus 1000 UNITS/10 ML VIAL SC SCH (08:23)
[2021-09-17] MEDS: Acetaminophen 325 MG TAB PO PRN (23:50)
[2021-09-18] MEDS: Enoxaparin Sodium 30 MG/0.3 ML SYRINGE SC SCH (08:20)
[2021-09-18] MEDS: Lantus 1000 UNITS/10 ML VIAL SC SCH (08:20)
[2021-09-18] MEDS: Metoprolol Tartrate 50 MG TAB PO SCH ×2 (08:21→21:01)
[2021-09-18] MEDS: Ondansetron ODT 4 MG TAB PO PRN (10:32)
[2021-09-19] MEDS: Enoxaparin Sodium 30 MG/0.3 ML SYRINGE SC SCH (08:40)
[2021-09-19] MEDS: Metoprolol Tartrate 50 MG TAB PO SCH ×2 (08:41→21:12)
[2021-09-19] MEDS: Lantus 1000 UNITS/10 ML VIAL SC SCH (08:41)
[2021-09-20] MEDS: Metoprolol Tartrate 50 MG TAB PO SCH ×2 (08:12→21:10)
[2021-09-20] MEDS: Enoxaparin Sodium 30 MG/0.3 ML SYRINGE SC SCH (08:12)
[2021-09-20] MEDS: Lantus 1000 UNITS/10 ML VIAL SC SCH (08:12)
[2021-09-21] MEDS: Lantus 1000 UNITS/10 ML VIAL SC SCH (08:22)
[2021-09-21] MEDS: Enoxaparin Sodium 30 MG/0.3 ML SYRINGE SC SCH (08:22)
[2021-09-21] MEDS: Metoprolol Tartrate 50 MG TAB PO SCH ×2 (08:23→21:17)
[2021-09-21] MEDS: Ondansetron ODT 4 MG TAB PO PRN (14:05)
[2021-09-21] MEDS: Acetaminophen 325 MG TAB PO PRN (21:17)
[2021-09-22] MEDS: Enoxaparin Sodium 30 MG/0.3 ML SYRINGE SC SCH (08:43)
[2021-09-22] MEDS: Lantus 1000 UNITS/10 ML VIAL SC SCH (08:44)
[2021-09-22] MEDS: Metoprolol Tartrate 50 MG TAB PO SCH ×2 (08:44→21:01)
[2021-09-22] MEDS: Polyethylene Glycol 3350 17 GM Packet PO PRN (08:53)
[2021-09-22 09:47] LABS: ALT (SGPT) 9 U/L (8-55); AST (SGOT) 13 U/L (5-34); Albumin 3.4 g/dL (3.4-4.8); Alkaline Phosphatase 114 U/L (40-110); Anion Gap 12 mmol/L (10-20); BUN (Urea Nitrogen) 12 mg/dL (9.8-20.1); Bilirubin, Total 0.5 mg/dL (0.2-1.2); Calc. Creatinine Clearance 29 mL/min (70-130); Calcium 9.6 mg/dL (7.8-10.44); Carbon Dioxide 30 mmol/L (23-31); Chloride 97 mmol/L (98-107); Globulin 2.8 g/dL (2.4-3.5); Glucose 220 mg/dL (83-110); Potassium 3.4 mmol/L (3.5-5.1); Protein, Total 6.2 g/dL (5.8-8.1); Sodium 136 mmol/L (136-145)
[2021-09-22 15:42] LABS: SARS-CoV-2 PCR by NAA Not Detected (NotDetected)
[2021-09-23 05:20] LABS: #Basophils 0.1 thou/uL (0.0-0.2); #Eosinphils 0.2 thou/uL (0.0-0.7); #Lymphocytes 3.3 thou/uL (1.20-3.40); #Monocytes 1.1 thou/uL (0.11-0.59); #Neutrophils 5.1 thou/uL (1.40-6.50); %Basophils 1.3 % (0.0-1.0); %Eosinophils 1.6 % (0.0-10.0); %Lymphocytes 33.9 % (21.0-51.0); %Monocytes 11.5 % (0.0-10.0); %Neutrophils 51.7 % (42.0-75.0); Hemoglobin 12.4 g/dL (12.0-16.0); Mean Corpuscular HGB CONC 33.6 g/dL (32.0-36.0); Mean Corpuscular Hemoglobin 30.3 pg (27.0-31.0); Mean Corpuscular Volume 90.3 fL (78.0-98.0); Mean Platelet Volume 6.3 fL (7.4-10.4); Platelet Count 431 thou/uL (130-400); RBC Distribution Width 11.5 % (11.5-14.5); White Blood Cell (WBC) Count 9.8 thou/uL (4.8-10.8)
[2021-09-23] MEDS: Metoprolol Tartrate 50 MG TAB PO SCH ×2 (09:54→20:54)
[2021-09-23] MEDS: Enoxaparin Sodium 30 MG/0.3 ML SYRINGE SC SCH (09:54)
[2021-09-23] MEDS: Lantus 1000 UNITS/10 ML VIAL SC SCH (09:55)
[2021-09-23] MEDS: SEMAGLUTIDE 4 MG/3 ML SC SCH (16:19)
[2021-09-24] MEDS: Acetaminophen 325 MG TAB PO PRN (04:12)
[2021-09-24] MEDS: Enoxaparin Sodium 30 MG/0.3 ML SYRINGE SC SCH (09:05)
[2021-09-24] MEDS: Metoprolol Tartrate 50 MG TAB PO SCH ×2 (09:05→20:50)
[2021-09-24] MEDS: Lantus 1000 UNITS/10 ML VIAL SC SCH (09:05)
[2021-09-25] MEDS: Enoxaparin Sodium 30 MG/0.3 ML SYRINGE SC SCH (08:00)
[2021-09-25] MEDS: Lantus 1000 UNITS/10 ML VIAL SC SCH ×2 (08:00→09:27)
[2021-09-25] MEDS: Metoprolol Tartrate 50 MG TAB PO SCH ×2 (08:01→20:43)
[2021-09-25] MEDS: Ondansetron ODT 4 MG TAB PO PRN (08:01)
[2021-09-25] MEDS: Polyethylene Glycol 3350 17 GM Packet PO PRN (08:01)
[2021-09-25] MEDS ORDERED: Acetaminophen 325 MG TAB PO PRN (09:00)
[2021-09-25] MEDS: Acetaminophen 325 MG TAB PO PRN (20:43)
[2021-09-26] MEDS: Enoxaparin Sodium 30 MG/0.3 ML SYRINGE SC SCH (08:29)
[2021-09-26] MEDS: Lantus 1000 UNITS/10 ML VIAL SC SCH (08:30)
[2021-09-26] MEDS: Metoprolol Tartrate 50 MG TAB PO SCH ×2 (08:31→20:16)
[2021-09-26] MEDS: Polyethylene Glycol 3350 17 GM Packet PO PRN (20:24)
[2021-09-27] MEDS: Enoxaparin Sodium 30 MG/0.3 ML SYRINGE SC SCH (08:26)
[2021-09-27] MEDS: Lantus 1000 UNITS/10 ML VIAL SC SCH (08:26)
[2021-09-27] MEDS: Metoprolol Tartrate 50 MG TAB PO SCH ×2 (08:26→21:45)
[2021-09-27] MEDS: Acetaminophen 325 MG TAB PO PRN (21:45)
[2021-09-28] MEDS: Metoprolol Tartrate 50 MG TAB PO SCH ×2 (09:23→20:51)
[2021-09-28] MEDS: Polyethylene Glycol 3350 17 GM Packet PO PRN (09:23)
[2021-09-28] MEDS: Enoxaparin Sodium 30 MG/0.3 ML SYRINGE SC SCH (09:24)
[2021-09-28] MEDS: Lantus 1000 UNITS/10 ML VIAL SC SCH (09:24)
[2021-09-28] MEDS: Ondansetron ODT 4 MG TAB PO PRN (11:36)
[2021-09-28] MEDS: Senokot S 8.6-50 MG TAB PO PRN (20:51)
[2021-09-28] MEDS: Acetaminophen 325 MG TAB PO PRN (20:51)
[2021-09-29] MEDS: Polyethylene Glycol 3350 17 GM Packet PO PRN (09:13)
[2021-09-29] MEDS: Metoprolol Tartrate 50 MG TAB PO SCH ×2 (09:13→20:42)
[2021-09-29] MEDS: Enoxaparin Sodium 30 MG/0.3 ML SYRINGE SC SCH (09:13)
[2021-09-29] MEDS: Lantus 1000 UNITS/10 ML VIAL SC SCH (09:17)
[2021-09-29] MEDS: Ondansetron ODT 4 MG TAB PO PRN (12:16)
[2021-09-29 15:21] LABS: SARS-CoV-2 PCR by NAA Not Detected (NotDetected)
[2021-09-30] MEDS: Lantus 1000 UNITS/10 ML VIAL SC SCH (08:49)
[2021-09-30] MEDS: Enoxaparin Sodium 30 MG/0.3 ML SYRINGE SC SCH (08:50)
[2021-09-30] MEDS: Metoprolol Tartrate 50 MG TAB PO SCH ×2 (08:50→21:03)
[2021-09-30] MEDS: SEMAGLUTIDE 4 MG/3 ML SC SCH (16:39)
[2021-10-01] MEDS: Acetaminophen 325 MG TAB PO PRN ×2 (01:57→19:39)
[2021-10-01 05:36] LABS: Hemoglobin 12.4 g/dL (12.0-16.0); Platelet Count 363 thou/uL (130-400)
[2021-10-01] MEDS: Metoprolol Tartrate 50 MG TAB PO SCH ×2 (08:43→21:12)
[2021-10-01] MEDS: Lantus 1000 UNITS/10 ML VIAL SC SCH (08:43)
[2021-10-01] MEDS: Enoxaparin Sodium 30 MG/0.3 ML SYRINGE SC SCH (08:44)
[2021-10-02] MEDS: Lantus 1000 UNITS/10 ML VIAL SC SCH (08:20)
[2021-10-02] MEDS: Enoxaparin Sodium 30 MG/0.3 ML SYRINGE SC SCH (08:20)
[2021-10-02] MEDS: Metoprolol Tartrate 50 MG TAB PO SCH ×2 (08:21→21:32)
[2021-10-02] MEDS: Acetaminophen 325 MG TAB PO PRN (21:32)
[2021-10-02] MEDS: Senokot S 8.6-50 MG TAB PO PRN (21:33)
[2021-10-03] MEDS: Acetaminophen 325 MG TAB PO PRN (05:40)
[2021-10-03 05:46] LABS: Anion Gap 14 mmol/L (10-20); BUN (Urea Nitrogen) 8 mg/dL (9.8-20.1); Calc. Creatinine Clearance 46 mL/min (70-130); Calcium 8.9 mg/dL (7.8-10.44); Carbon Dioxide 26 mmol/L (23-31); Chloride 102 mmol/L (98-107); Glucose 93 mg/dL (83-110); Sodium 139 mmol/L (136-145)
[2021-10-03 05:49] LABS: Potassium 2.7 mmol/L (3.5-5.1)
[2021-10-03] MEDS: Metoprolol Tartrate 50 MG TAB PO SCH ×2 (08:46→20:42)
[2021-10-03] MEDS: Potassium Chloride 20 MEQ TAB PO SCH ×2 (08:46→17:05)
[2021-10-03] MEDS: Lantus 1000 UNITS/10 ML VIAL SC SCH (08:46)
[2021-10-03] MEDS: Enoxaparin Sodium 30 MG/0.3 ML SYRINGE SC SCH (08:47)
[2021-10-03] MEDS: Ondansetron ODT 4 MG TAB PO PRN (11:53)
[2021-10-03] MEDS: Polyethylene Glycol 3350 17 GM Packet PO PRN (15:17)
[2021-10-03] MEDS ORDERED: NS 0.9% w/ 20 MEQ KCL 1,000 ML IV SCH (19:30)
[2021-10-03] MEDS ORDERED: Potassium Bicarbonate/Cit Ac 20 MEQ TAB PO SCH (20:15)
[2021-10-04 05:46] LABS: Anion Gap 10 mmol/L (10-20); BUN (Urea Nitrogen) 9 mg/dL (9.8-20.1); Calc. Creatinine Clearance 47 mL/min (70-130); Calcium 8.7 mg/dL (7.8-10.44); Carbon Dioxide 29 mmol/L (23-31); Chloride 102 mmol/L (98-107); Glucose 77 mg/dL (83-110); Sodium 138 mmol/L (136-145)
[2021-10-04 05:53] LABS: Potassium 2.8 mmol/L (3.5-5.1)
[2021-10-04] MEDS: Potassium Bicarbonate/Cit Ac 20 MEQ TAB PO SCH ×2 (08:35→17:33)
[2021-10-04] MEDS: Metoprolol Tartrate 50 MG TAB PO SCH ×2 (08:36→21:06)
[2021-10-04] MEDS: Lantus 1000 UNITS/10 ML VIAL SC SCH (08:36)
[2021-10-04] MEDS: Enoxaparin Sodium 30 MG/0.3 ML SYRINGE SC SCH (08:36)
[2021-10-04] MEDS: Acetaminophen 325 MG TAB PO PRN (21:05)
[2021-10-05] MEDS: Potassium Bicarbonate/Cit Ac 20 MEQ TAB PO SCH ×2 (08:28→16:52)
[2021-10-05] MEDS: Enoxaparin Sodium 30 MG/0.3 ML SYRINGE SC SCH (08:29)
[2021-10-05] MEDS: Lantus 1000 UNITS/10 ML VIAL SC SCH (08:29)
[2021-10-05] MEDS: Metoprolol Tartrate 50 MG TAB PO SCH ×2 (08:29→21:01)
[2021-10-05] MEDS: Acetaminophen 325 MG TAB PO PRN (21:00)
[2021-10-06 05:29] LABS: #Basophils 0.1 thou/uL (0.0-0.2); #Eosinphils 0.3 thou/uL (0.0-0.7); #Lymphocytes 3.2 thou/uL (1.20-3.40); #Neutrophils 4.5 thou/uL (1.40-6.50); %Basophils 1.4 % (0.0-1.0); %Eosinophils 3.4 % (0.0-10.0); %Monocytes 10.6 % (0.0-10.0); %Neutrophils 49.6 % (42.0-75.0); Hemoglobin 12.1 g/dL (12.0-16.0); Mean Corpuscular HGB CONC 32.8 g/dL (32.0-36.0); Mean Corpuscular Volume 91.6 fL (78.0-98.0); Mean Platelet Volume 6.5 fL (7.4-10.4); Platelet Count 366 thou/uL (130-400); RBC Distribution Width 11.5 % (11.5-14.5); Red Blood Cell (RBC) Count 4.04 mill/uL (4.20-5.40); White Blood Cell (WBC) Count 9.1 thou/uL (4.8-10.8)
[2021-10-06 05:46] LABS: Anion Gap 10 mmol/L (10-20); BUN (Urea Nitrogen) 9 mg/dL (9.8-20.1); Calc. Creatinine Clearance 50 mL/min (70-130); Calcium 9.2 mg/dL (7.8-10.44); Carbon Dioxide 31 mmol/L (23-31); Chloride 101 mmol/L (98-107); Glucose 86 mg/dL (83-110); Potassium 3.4 mmol/L (3.5-5.1); Sodium 139 mmol/L (136-145)
[2021-10-06] MEDS: Enoxaparin Sodium 30 MG/0.3 ML SYRINGE SC SCH (09:04)
[2021-10-06] MEDS: Metoprolol Tartrate 50 MG TAB PO SCH ×2 (09:04→20:32)
[2021-10-06] MEDS: Potassium Bicarbonate/Cit Ac 20 MEQ TAB PO SCH ×2 (09:04→17:08)
[2021-10-06] MEDS: Lantus 1000 UNITS/10 ML VIAL SC SCH (09:05)
[2021-10-06 17:24] LABS: SARS-CoV-2 PCR by NAA Not Detected (NotDetected)
[2021-10-07] MEDS: Lantus 1000 UNITS/10 ML VIAL SC SCH (08:24)
[2021-10-07] MEDS: Enoxaparin Sodium 30 MG/0.3 ML SYRINGE SC SCH (08:26)
[2021-10-07] MEDS: Acetaminophen 325 MG TAB PO PRN ×2 (08:26→20:59)
[2021-10-07] MEDS: Metoprolol Tartrate 50 MG TAB PO SCH ×2 (08:27→20:59)
[2021-10-07] MEDS: Potassium Bicarbonate/Cit Ac 20 MEQ TAB PO SCH ×2 (08:27→17:41)
[2021-10-07] MEDS: SEMAGLUTIDE 4 MG/3 ML SC SCH (18:23)
[2021-10-08] MEDS: Potassium Bicarbonate/Cit Ac 20 MEQ TAB PO SCH ×2 (08:35→17:12)
[2021-10-08] MEDS: Enoxaparin Sodium 30 MG/0.3 ML SYRINGE SC SCH (08:36)
[2021-10-08] MEDS: Lantus 1000 UNITS/10 ML VIAL SC SCH (08:36)
[2021-10-08] MEDS: Metoprolol Tartrate 50 MG TAB PO SCH ×2 (08:37→21:02)
[2021-10-08] MEDS: Ondansetron ODT 4 MG TAB PO PRN (12:22)
[2021-10-08] MEDS: Acetaminophen 325 MG TAB PO PRN (21:02)
[2021-10-08] MEDS: Senokot S 8.6-50 MG TAB PO PRN (21:04)
[2021-10-09] MEDS: Lantiseptic Ointment 130 GM JAR TOP PRN (10:22)
[2021-10-09] MEDS: Enoxaparin Sodium 30 MG/0.3 ML SYRINGE SC SCH (10:22)
[2021-10-09] MEDS: Potassium Bicarbonate/Cit Ac 20 MEQ TAB PO SCH ×2 (10:22→17:06)
[2021-10-09] MEDS: Lantus 1000 UNITS/10 ML VIAL SC SCH (10:22)
[2021-10-09] MEDS: Metoprolol Tartrate 50 MG TAB PO SCH ×2 (10:23→20:24)
[2021-10-09] MEDS: Acetaminophen 325 MG TAB PO PRN (23:14)
[2021-10-10 05:33] LABS: Anion Gap 12 mmol/L (10-20); BUN (Urea Nitrogen) 9 mg/dL (9.8-20.1); Calc. Creatinine Clearance 47 mL/min (70-130); Calcium 8.6 mg/dL (7.8-10.44); Carbon Dioxide 31 mmol/L (23-31); Chloride 100 mmol/L (98-107); Glucose 72 mg/dL (83-110); Potassium 4.1 mmol/L (3.5-5.1); Sodium 139 mmol/L (136-145)
[2021-10-10] MEDS: Lantus 1000 UNITS/10 ML VIAL SC SCH (09:13)
[2021-10-10] MEDS: Enoxaparin Sodium 30 MG/0.3 ML SYRINGE SC SCH (09:14)
[2021-10-10] MEDS: Metoprolol Tartrate 50 MG TAB PO SCH ×2 (09:14→20:17)
[2021-10-10] MEDS: Potassium Bicarbonate/Cit Ac 20 MEQ TAB PO SCH (09:14)
[2021-10-10] MEDS: Acetaminophen 325 MG TAB PO PRN (20:21)
[2021-10-11] MEDS: Metoprolol Tartrate 50 MG TAB PO SCH ×2 (09:06→20:12)
[2021-10-11] MEDS: Potassium Bicarbonate/Cit Ac 20 MEQ TAB PO SCH (09:07)
[2021-10-11] MEDS: Lantus 1000 UNITS/10 ML VIAL SC SCH (09:07)
[2021-10-11] MEDS: Enoxaparin Sodium 30 MG/0.3 ML SYRINGE SC SCH (09:08)
[2021-10-11 18:01] LABS: Bilirubin Negative (Negative); Blood, Urine Small (Negative); Glucose, Urine (Dipstick) Negative (Negative); Ketone, Urine Negative (Negative); Leukocyte Large (Negative); Nitrite Negative (Negative); Protein, Urine (Dipstick) Trace mg/dL (Neg-Trace); Urobilinogen 0.2 mg/dL (Less than 2); pH, Urine 6.5 (5.0-9.0)
[2021-10-11 18:04] LABS: Bacteria/HPF 3+ HPF (None Seen); Clarity Slightly Cloudy (Clear); RBC/HPF Greater than 50 HPF (0-3); Squamous Epithelial None Seen HPF (0-3); WBC/HPF Greater Than 50 HPF (0-3)
[2021-10-11] MEDS ORDERED: Cefdinir 300 MG CAP PO SCH (22:15)
[2021-10-12] MEDS: Potassium Bicarbonate/Cit Ac 20 MEQ TAB PO SCH (08:08)
[2021-10-12] MEDS: Metoprolol Tartrate 50 MG TAB PO SCH ×2 (08:09→21:01)
[2021-10-12] MEDS: Cefdinir 300 MG CAP PO SCH ×2 (08:09→21:01)
[2021-10-12] MEDS: Enoxaparin Sodium 30 MG/0.3 ML SYRINGE SC SCH (08:09)
[2021-10-12] MEDS: Acetaminophen 325 MG TAB PO PRN ×2 (08:10→21:01)
[2021-10-12] MEDS: Lantus 1000 UNITS/10 ML VIAL SC SCH (08:11)
[2021-10-13] MEDS: Potassium Bicarbonate/Cit Ac 20 MEQ TAB PO SCH (08:32)
[2021-10-13] MEDS: Cefdinir 300 MG CAP PO SCH ×2 (08:34→20:11)
[2021-10-13] MEDS: Metoprolol Tartrate 50 MG TAB PO SCH ×2 (08:34→20:11)
[2021-10-13] MEDS: Lantus 1000 UNITS/10 ML VIAL SC SCH (08:35)
[2021-10-13] MEDS: Enoxaparin Sodium 30 MG/0.3 ML SYRINGE SC SCH (08:35)
[2021-10-13 14:29] LABS: SARS-CoV-2 PCR by NAA Not Detected (NotDetected)
[2021-10-14 05:35] LABS: Hemoglobin 12.2 g/dL (12.0-16.0); Platelet Count 378 thou/uL (130-400)
[2021-10-14] MEDS: Potassium Bicarbonate/Cit Ac 20 MEQ TAB PO SCH (09:21)
[2021-10-14] MEDS: Cefdinir 300 MG CAP PO SCH ×2 (09:21→20:38)
[2021-10-14] MEDS: Lantus 1000 UNITS/10 ML VIAL SC SCH (09:21)
[2021-10-14] MEDS: Metoprolol Tartrate 50 MG TAB PO SCH ×2 (09:21→20:38)
[2021-10-14] MEDS: Enoxaparin Sodium 30 MG/0.3 ML SYRINGE SC SCH (09:23)
[2021-10-14] MEDS: SEMAGLUTIDE 4 MG/3 ML SC SCH (16:57)
[2021-10-14] MEDS: Acetaminophen 325 MG TAB PO PRN (20:37)
[2021-10-15] MEDS: Acetaminophen 325 MG TAB PO PRN (06:26)
[2021-10-15] MEDS: Enoxaparin Sodium 30 MG/0.3 ML SYRINGE SC SCH (09:06)
[2021-10-15] MEDS: Metoprolol Tartrate 50 MG TAB PO SCH ×2 (09:06→21:53)
[2021-10-15] MEDS: Nitrofurantoin Monohyd/M-Cryst 100 MG CAP PO SCH ×2 (09:06→21:52)
[2021-10-15] MEDS: Potassium Bicarbonate/Cit Ac 20 MEQ TAB PO SCH (09:07)
[2021-10-15] MEDS: Lantus 1000 UNITS/10 ML VIAL SC SCH (09:08)
[2021-10-15] MEDS: Ondansetron ODT 4 MG TAB PO PRN (12:01)
[2021-10-15] MEDS: Loratadine 10 MG TAB PO PRN (12:49)
[2021-10-15] MEDS: Lantiseptic Ointment 130 GM JAR TOP PRN (21:52)
[2021-10-16] MEDS: Enoxaparin Sodium 30 MG/0.3 ML SYRINGE SC SCH (08:36)
[2021-10-16] MEDS: Potassium Bicarbonate/Cit Ac 20 MEQ TAB PO SCH (08:36)
[2021-10-16] MEDS: Nitrofurantoin Monohyd/M-Cryst 100 MG CAP PO SCH ×2 (08:36→20:44)
[2021-10-16] MEDS: Metoprolol Tartrate 50 MG TAB PO SCH ×2 (08:36→20:44)
[2021-10-16] MEDS: Lantus 1000 UNITS/10 ML VIAL SC SCH ×2 (09:20→09:21)
[2021-10-16 13:00] LABS: SARS-CoV-2 PCR by NAA DETECTED (NotDetected)
[2021-10-16] MEDS: Acetaminophen 325 MG TAB PO PRN (20:44)
[2021-10-17] MEDS: Metoprolol Tartrate 50 MG TAB PO SCH ×2 (09:26→21:52)
[2021-10-17] MEDS: Loratadine 10 MG TAB PO PRN (09:26)
[2021-10-17] MEDS: Potassium Bicarbonate/Cit Ac 20 MEQ TAB PO SCH (09:26)
[2021-10-17] MEDS: Enoxaparin Sodium 30 MG/0.3 ML SYRINGE SC SCH (09:26)
[2021-10-17] MEDS: Nitrofurantoin Monohyd/M-Cryst 100 MG CAP PO SCH ×2 (09:26→21:53)
[2021-10-17] MEDS: Guaifenesin DM 100-10/5 ML UDCUP PO PRN (09:27)
[2021-10-17] MEDS: Lantus 1000 UNITS/10 ML VIAL SC SCH (09:27)
[2021-10-17] MEDS: Ondansetron ODT 4 MG TAB PO PRN (14:38)
[2021-10-17] MEDS: Acetaminophen 325 MG TAB PO PRN (21:53)
[2021-10-18] MEDS: Lantus 1000 UNITS/10 ML VIAL SC SCH (09:28)
[2021-10-18] MEDS: Potassium Bicarbonate/Cit Ac 20 MEQ TAB PO SCH (09:28)
[2021-10-18] MEDS: Enoxaparin Sodium 30 MG/0.3 ML SYRINGE SC SCH (09:28)
[2021-10-18] MEDS: Nitrofurantoin Monohyd/M-Cryst 100 MG CAP PO SCH ×2 (09:29→22:11)
[2021-10-18] MEDS: Loratadine 10 MG TAB PO PRN (09:29)
[2021-10-18] MEDS: Acetaminophen 325 MG TAB PO PRN ×3 (09:30→22:11)
[2021-10-18] MEDS: Metoprolol Tartrate 50 MG TAB PO SCH ×2 (09:30→22:11)
[2021-10-18] MEDS: Guaifenesin DM 100-10/5 ML UDCUP PO PRN ×2 (15:47→22:11)
[2021-10-19] MEDS: Enoxaparin Sodium 30 MG/0.3 ML SYRINGE SC SCH (09:27)
[2021-10-19] MEDS: Potassium Bicarbonate/Cit Ac 20 MEQ TAB PO SCH (09:27)
[2021-10-19] MEDS: Lantus 1000 UNITS/10 ML VIAL SC SCH (09:27)
[2021-10-19] MEDS: Acetaminophen 325 MG TAB PO PRN (09:28)
[2021-10-19] MEDS: Nitrofurantoin Monohyd/M-Cryst 100 MG CAP PO SCH ×2 (09:28→21:59)
[2021-10-19] MEDS: Metoprolol Tartrate 50 MG TAB PO SCH ×2 (09:28→21:59)
[2021-10-19] MEDS: Loratadine 10 MG TAB PO PRN (09:29)
[2021-10-19] MEDS: Guaifenesin DM 100-10/5 ML UDCUP PO PRN (09:29)
[2021-10-20] MEDS: Potassium Bicarbonate/Cit Ac 20 MEQ TAB PO SCH (08:57)
[2021-10-20] MEDS: Metoprolol Tartrate 50 MG TAB PO SCH ×2 (08:58→21:13)
[2021-10-20] MEDS: Nitrofurantoin Monohyd/M-Cryst 100 MG CAP PO SCH ×2 (08:58→21:13)
[2021-10-20] MEDS: Acetaminophen 325 MG TAB PO PRN ×2 (08:58→21:13)
[2021-10-20] MEDS: Loratadine 10 MG TAB PO PRN (08:59)
[2021-10-20] MEDS: Lantus 1000 UNITS/10 ML VIAL SC SCH (08:59)
[2021-10-20] MEDS: Enoxaparin Sodium 30 MG/0.3 ML SYRINGE SC SCH (08:59)
[2021-10-20] MEDS: Guaifenesin DM 100-10/5 ML UDCUP PO PRN (08:59)
[2021-10-20 11:24] VITALS: BMI 22.3
[2021-10-21] MEDS: Acetaminophen 325 MG TAB PO PRN ×3 (05:35→20:53)
[2021-10-21] MEDS: Metoprolol Tartrate 50 MG TAB PO SCH ×2 (08:42→20:53)
[2021-10-21] MEDS: Potassium Bicarbonate/Cit Ac 20 MEQ TAB PO SCH (08:43)
[2021-10-21] MEDS: Enoxaparin Sodium 30 MG/0.3 ML SYRINGE SC SCH (08:43)
[2021-10-21] MEDS: Nitrofurantoin Monohyd/M-Cryst 100 MG CAP PO SCH ×2 (08:43→20:53)
[2021-10-21] MEDS: Lantus 1000 UNITS/10 ML VIAL SC SCH (08:43)
[2021-10-21] MEDS: SEMAGLUTIDE 4 MG/3 ML SC SCH (16:36)
[2021-10-21] MEDS: Ondansetron ODT 4 MG TAB PO PRN (23:38)
[2021-10-22 05:52] LABS: Anion Gap 15 mmol/L (10-20); BUN (Urea Nitrogen) 8 mg/dL (9.8-20.1); Calc. Creatinine Clearance 58 mL/min (70-130); Calcium 8.4 mg/dL (7.8-10.44); Carbon Dioxide 27 mmol/L (23-31); Chloride 98 mmol/L (98-107); Glucose 125 mg/dL (83-110); Sodium 137 mmol/L (136-145)
[2021-10-22] MEDS: Nitrofurantoin Monohyd/M-Cryst 100 MG CAP PO SCH (08:59)
[2021-10-22] MEDS: Lantus 1000 UNITS/10 ML VIAL SC SCH (08:59)
[2021-10-22] MEDS: Enoxaparin Sodium 30 MG/0.3 ML SYRINGE SC SCH (08:59)
[2021-10-22] MEDS: Metoprolol Tartrate 50 MG TAB PO SCH ×2 (08:59→20:24)
[2021-10-22] MEDS: Potassium Bicarbonate/Cit Ac 20 MEQ TAB PO SCH (08:59)
[2021-10-23 05:14] LABS: Platelet Count 385 thou/uL (130-400)
[2021-10-23] MEDS: Enoxaparin Sodium 30 MG/0.3 ML SYRINGE SC SCH (08:41)
[2021-10-23] MEDS: Lantus 1000 UNITS/10 ML VIAL SC SCH (08:41)
[2021-10-23] MEDS: Potassium Bicarbonate/Cit Ac 20 MEQ TAB PO SCH ×2 (08:41→20:43)
[2021-10-23] MEDS: Metoprolol Tartrate 50 MG TAB PO SCH ×2 (08:41→20:43)
[2021-10-24] MEDS: Enoxaparin Sodium 30 MG/0.3 ML SYRINGE SC SCH (08:49)
[2021-10-24] MEDS: Potassium Bicarbonate/Cit Ac 20 MEQ TAB PO SCH ×2 (08:50→21:00)
[2021-10-24] MEDS: Metoprolol Tartrate 50 MG TAB PO SCH ×2 (08:50→21:00)
[2021-10-24] MEDS: Lantus 1000 UNITS/10 ML VIAL SC SCH (08:50)
[2021-10-25] MEDS: Ondansetron ODT 4 MG TAB PO PRN (01:36)
[2021-10-25 07:23] LABS: #Basophils 0.1 thou/uL (0.0-0.2); #Eosinphils 0.1 thou/uL (0.0-0.7); #Neutrophils 6.7 thou/uL (1.40-6.50); %Basophils 0.9 % (0.0-1.0); %Eosinophils 0.8 % (0.0-10.0); %Lymphocytes 27.2 % (21.0-51.0); %Monocytes 8.9 % (0.0-10.0); %Neutrophils 62.1 % (42.0-75.0); Hemoglobin 12.4 g/dL (12.0-16.0); Mean Corpuscular HGB CONC 33.8 g/dL (32.0-36.0); Mean Corpuscular Hemoglobin 30.5 pg (27.0-31.0); Mean Corpuscular Volume 90.4 fL (78.0-98.0); Mean Platelet Volume 6.1 fL (7.4-10.4); Platelet Count 431 thou/uL (130-400); RBC Distribution Width 11.6 % (11.5-14.5); Red Blood Cell (RBC) Count 4.07 mill/uL (4.20-5.40); White Blood Cell (WBC) Count 10.8 thou/uL (4.8-10.8)
[2021-10-25 07:39] LABS: ALT (SGPT) Less than 7 U/L (8-55); AST (SGOT) 14 U/L (5-34); Albumin 2.9 g/dL (3.4-4.8); Alkaline Phosphatase 71 U/L (40-110); Anion Gap 12 mmol/L (10-20); BUN (Urea Nitrogen) 8 mg/dL (9.8-20.1); Bilirubin, Total 0.7 mg/dL (0.2-1.2); Calc. Creatinine Clearance 49 mL/min (70-130); Calcium 8.3 mg/dL (7.8-10.44); Carbon Dioxide 30 mmol/L (23-31); Chloride 96 mmol/L (98-107); Globulin 2.3 g/dL (2.4-3.5); Glucose 189 mg/dL (83-110); Potassium 3.1 mmol/L (3.5-5.1); Protein, Total 5.2 g/dL (5.8-8.1); Sodium 135 mmol/L (136-145)
[2021-10-25] MEDS: Metoprolol Tartrate 50 MG TAB PO SCH ×2 (09:11→21:10)
[2021-10-25] MEDS: Lantus 1000 UNITS/10 ML VIAL SC SCH (09:11)
[2021-10-25] MEDS: Potassium Bicarbonate/Cit Ac 20 MEQ TAB PO SCH ×2 (09:11→21:10)
[2021-10-25] MEDS: Enoxaparin Sodium 30 MG/0.3 ML SYRINGE SC SCH (09:11)
[2021-10-26] MEDS: Potassium Bicarbonate/Cit Ac 20 MEQ TAB PO SCH ×2 (09:35→19:35)
[2021-10-26] MEDS: Metoprolol Tartrate 50 MG TAB PO SCH ×2 (09:35→19:35)
[2021-10-26] MEDS: Lantus 1000 UNITS/10 ML VIAL SC SCH (09:35)
[2021-10-26] MEDS: Enoxaparin Sodium 30 MG/0.3 ML SYRINGE SC SCH (09:35)
[2021-10-27 05:51] LABS: Anion Gap 12 mmol/L (10-20); BUN (Urea Nitrogen) 5 mg/dL (9.8-20.1); Calc. Creatinine Clearance 59 mL/min (70-130); Calcium 8.3 mg/dL (7.8-10.44); Carbon Dioxide 31 mmol/L (23-31); Chloride 99 mmol/L (98-107); Glucose 94 mg/dL (83-110); Potassium 3.6 mmol/L (3.5-5.1); Sodium 138 mmol/L (136-145)
[2021-10-27 08:33] VITALS: BP 132/64; TEMP 98.1
[2021-10-27] MEDS: Potassium Bicarbonate/Cit Ac 20 MEQ TAB PO SCH (08:35)
[2021-10-27] MEDS: Enoxaparin Sodium 30 MG/0.3 ML SYRINGE SC SCH (08:35)
[2021-10-27] MEDS: Metoprolol Tartrate 50 MG TAB PO SCH (08:36)
[2021-10-27] MEDS: Lantus 1000 UNITS/10 ML VIAL SC SCH (08:38)
== END 2021-10-27 13:30 | disposition home health service (06) | DRG 947 ==
LOC: MADMS 14:48
PROVIDERS: ADMIT Family Medicine; ATTEND Family Medicine
PROC: 0T9B70Z Drainage of Bladder with Drainage Device, Via Natural or Artificial Opening (ICD-10-PCS; 2021-09-03)
PROC: 0TPBX0Z Removal of Drainage Device from Bladder, External Approach (ICD-10-PCS; 2021-10-09)
PROC: 8E0ZXY6 Isolation (ICD-10-PCS; principal; 2021-10-15)
DX: R53.81 Other malaise (principal); U07.1 COVID-19; N39.0 Urinary tract infection, site not specified; E11.9 Type 2 diabetes mellitus without complications; I10 Essential (primary) hypertension; R33.9 Retention of urine, unspecified; B96.20 Unspecified Escherichia coli [E. coli] as the cause of diseases classified elsewhere; K59.00 Constipation, unspecified; R11.0 Nausea; T36.8X5A Adverse effect of other systemic antibiotics, initial encounter; E87.6 Hypokalemia; J06.9 Acute upper respiratory infection, unspecified; Z90.49 Acquired absence of other specified parts of digestive tract; S72.8X1D Other fracture of right femur, subsequent encounter for closed fracture with routine healing; S82.831D Other fracture of upper and lower end of right fibula, subsequent encounter for closed fracture with routine healing; W19.XXXD Unspecified fall, subsequent encounter
CPT/HCPCS: 36415; 36416; 74018; 80048; 80053; 80061; 81001; 81003; 81015; 82565; 83036; 84443; 85014; 85018; 85025; 85049; 87077; 87086; 87186; J1650; J1815; Q0162; U0003; U0005

== ENCOUNTER 2021-10-28 12:08 | Emergency (ER) | payer MEDICARE, MEDICAID | END 2021-10-28 12:40 | disposition left against medical advice (07) | LOC: MADERS 12:08 | DX: Z53.21 Procedure and treatment not carried out due to patient leaving prior to being seen by health care provider (principal) ==

== ENCOUNTER 2021-10-29 06:27 | Emergency (ER) | payer MEDICARE, MEDICAID | END 2021-10-29 08:05 | disposition home or self-care (01) | LOC: MADERS 06:27 | DX: T83.028A Displacement of other urinary catheter, initial encounter (principal); R33.9 Retention of urine, unspecified; E11.9 Type 2 diabetes mellitus without complications; Z79.4 Long term (current) use of insulin; E78.5 Hyperlipidemia, unspecified; I10 Essential (primary) hypertension; Z79.899 Other long term (current) drug therapy | CPT/HCPCS: 51702; 51798 ==

== ENCOUNTER 2021-12-21 23:56 | Emergency (ER) | payer MEDICARE, MEDICAID ==
[2021-12-22] MEDS ORDERED: Ondansetron ODT 4 MG TAB ONE (00:51)
[2021-12-22 01:06] LABS: #Basophils 0.2 thou/uL (0.0-0.2); #Eosinphils 0.3 thou/uL (0.0-0.7); #Lymphocytes 2.5 thou/uL (1.20-3.40); #Neutrophils 7.3 thou/uL (1.40-6.50); %Basophils 1.9 % (0.0-1.0); %Eosinophils 2.5 % (0.0-10.0); %Lymphocytes 22.1 % (21.0-51.0); %Monocytes 8.6 % (0.0-10.0); %Neutrophils 64.8 % (42.0-75.0); Hemoglobin 14.5 g/dL (12.0-16.0); Mean Corpuscular Hemoglobin 30.4 pg (27.0-31.0); Mean Corpuscular Volume 92.2 fL (78.0-98.0); Mean Platelet Volume 6.5 fL (7.4-10.4); Platelet Count 167 thou/uL (130-400); RBC Distribution Width 10.8 % (11.5-14.5); Red Blood Cell (RBC) Count 4.75 mill/uL (4.20-5.40); White Blood Cell (WBC) Count 11.3 thou/uL (4.8-10.8)
[2021-12-22 01:10] LABS: Bilirubin Negative (Negative); Blood, Urine Trace (Negative); Clarity Clear (Clear); Glucose, Urine (Dipstick) 100 mg/dL (Negative); Ketone, Urine Negative (Negative); Leukocyte Negative (Negative); Nitrite Negative (Negative); Protein, Urine (Dipstick) 30 mg/dL (Neg-Trace); Urobilinogen 0.2 mg/dL (Less than 2); pH, Urine 7.5 (5.0-9.0)
[2021-12-22 01:18] LABS: Squamous Epithelial 0-3 HPF (0-3); Transitional Epithelial 0-3 HPF (None Seen); WBC/HPF 0-3 HPF (0-3); Yeast-Budding 1+ HPF (None Seen)
[2021-12-22 01:27] LABS: ALT (SGPT) 15 U/L (8-55); AST (SGOT) 17 U/L (5-34); Albumin 3.4 g/dL (3.4-4.8); Alkaline Phosphatase 83 U/L (40-110); Anion Gap 16 mmol/L (10-20); BUN (Urea Nitrogen) 8 mg/dL (9.8-20.1); Bilirubin, Total 0.5 mg/dL (0.2-1.2); CK (CPK) 24 U/L (29-168); Calc. Creatinine Clearance 0 mL/min (70-130); Calcium 8.8 mg/dL (7.8-10.44); Carbon Dioxide 23 mmol/L (23-31); Chloride 100 mmol/L (98-107); Globulin 2.8 g/dL (2.4-3.5); Glucose 198 mg/dL (83-110); Potassium 3.3 mmol/L (3.5-5.1); Protein, Total 6.2 g/dL (5.8-8.1); Sodium 136 mmol/L (136-145)
== END 2021-12-22 02:15 | disposition home or self-care (01) ==
LOC: MADERS 23:56
DX: R11.2 Nausea with vomiting, unspecified (principal); I10 Essential (primary) hypertension; B37.3 Candidiasis of vulva and vagina; Z79.899 Other long term (current) drug therapy; Z79.4 Long term (current) use of insulin
CPT/HCPCS: 80053; 81003; 81015; 82550; 85025; 87086; 99284; Q0162

== ENCOUNTER 2022-04-28 22:40 | Emergency (ER) | payer MEDICARE, MEDICAID ==
[2022-04-29 00:16] LABS: PTT 24.7 sec (22.9-36.1); Prothrombin Time 12.8 sec (12.0-14.7)
[2022-04-29 00:17] LABS: #Basophils 0.2 thou/uL (0.0-0.2); #Eosinphils 0.3 thou/uL (0.0-0.7); #Lymphocytes 2.8 thou/uL (1.20-3.40); #Monocytes 1.2 thou/uL (0.11-0.59); #Neutrophils 6.5 thou/uL (1.40-6.50); %Basophils 1.7 % (0.0-1.0); %Eosinophils 2.6 % (0.0-10.0); %Lymphocytes 25.1 % (21.0-51.0); %Neutrophils 59.5 % (42.0-75.0); Hemoglobin 13.3 g/dL (12.0-16.0); Mean Corpuscular HGB CONC 32.5 g/dL (32.0-36.0); Mean Corpuscular Hemoglobin 29.1 pg (27.0-31.0); Mean Corpuscular Volume 89.4 fL (78.0-98.0); Mean Platelet Volume 9.1 fL (7.4-10.4); Platelet Count 327 thou/uL (130-400); RBC Distribution Width 11.6 % (11.5-14.5); Red Blood Cell (RBC) Count 4.57 mill/uL (4.20-5.40)
[2022-04-29 00:35] LABS: Anion Gap 11 mmol/L (10-20); BUN (Urea Nitrogen) 12 mg/dL (9.8-20.1); Calc. Creatinine Clearance 0 mL/min (70-130); Calcium 8.9 mg/dL (7.8-10.44); Carbon Dioxide 29 mmol/L (23-31); Chloride 99 mmol/L (98-107); Estimated GFR 60; Glucose 344 mg/dL (83-110); Potassium 3.8 mmol/L (3.5-5.1); Sodium 135 mmol/L (136-145)
== END 2022-04-29 01:05 | disposition home or self-care (01) ==
LOC: MADERS 22:40
DX: K62.5 Hemorrhage of anus and rectum (principal); K64.4 Residual hemorrhoidal skin tags; K64.8 Other hemorrhoids; I10 Essential (primary) hypertension; E11.9 Type 2 diabetes mellitus without complications; E78.5 Hyperlipidemia, unspecified; Z79.4 Long term (current) use of insulin; Z79.899 Other long term (current) drug therapy
CPT/HCPCS: 80048; 82274; 85025; 85610; 85730; 99283

== ENCOUNTER 2022-09-16 16:30 | Emergency (ER) | payer MEDICARE, MEDICAID ==
[2022-09-16 18:39] LABS: #Basophils 0.2 thou/uL (0.0-0.2); #Lymphocytes 3.2 thou/uL (1.20-3.40); #Monocytes 1.8 thou/uL (0.11-0.59); #Neutrophils 13.8 thou/uL (1.40-6.50); %Eosinophils 0.2 % (0.0-10.0); %Lymphocytes 16.7 % (21.0-51.0); %Monocytes 9.4 % (0.0-10.0); %Neutrophils 72.8 % (42.0-75.0); Hemoglobin 13.6 g/dL (12.0-16.0); Mean Corpuscular HGB CONC 33.7 g/dL (32.0-36.0); Mean Corpuscular Hemoglobin 28.6 pg (27.0-31.0); Mean Platelet Volume 7.1 fL (7.4-10.4); Platelet Count 483 10x3/uL (130-400); RBC Distribution Width 11.6 % (11.5-14.5); Red Blood Cell (RBC) Count 4.74 mill/uL (4.20-5.40); White Blood Cell (WBC) Count 18.9 10x3/uL (4.8-10.8)
[2022-09-16] MEDS ORDERED: Sodium Chloride 0.9% 500 ML ONE (18:40)
[2022-09-16 18:43] LABS: Bilirubin Negative (Negative); Blood, Urine Moderate (Negative); Clarity Clear (Clear); Glucose, Urine (Dipstick) Negative (Negative); Ketone, Urine Negative (Negative); Leukocyte Moderate (Negative); Nitrite Positive (Negative); Protein, Urine (Dipstick) 30 mg/dL (Neg-Trace); Specific Gravity, Urine 1.015 (1.005-1.030); Urobilinogen 0.2 mg/dL (Less than 2)
[2022-09-16 18:56] LABS: ALT (SGPT) Less than 7 U/L (8-55); AST (SGOT) 9 U/L (5-34); Albumin 3.4 g/dL (3.4-4.8); Alkaline Phosphatase 86 U/L (40-110); Anion Gap 14 mmol/L (10-20); BUN (Urea Nitrogen) 9 mg/dL (9.8-20.1); Calc. Creatinine Clearance 0 mL/min (70-130); Calcium 9.1 mg/dL (7.8-10.44); Carbon Dioxide 27 mmol/L (23-31); Chloride 92 mmol/L (98-107); Estimated GFR 89; Globulin 3.2 g/dL (2.4-3.5); Glucose 122 mg/dL (83-110); Magnesium 1.8 mg/dL (1.6-2.6); Potassium 2.7 mmol/L (3.5-5.1); Protein, Total 6.6 g/dL (5.8-8.1); Sodium 130 mmol/L (136-145)
[2022-09-16 18:58] LABS: Bacteria/HPF 2+ HPF (None Seen); Mucous/LPF 1+ LPF (<2+); Squamous Epithelial 0-3 HPF (0-3); WBC/HPF 21-50 HPF (0-3)
[2022-09-16] MEDS ORDERED: Sodium Chloride 0.9% 100 ML ONE (19:28)
[2022-09-16] MEDS ORDERED: cefTRIAXone\\ROCEPHIN 2 GM VIAL ONE (19:28)
[2022-09-16] MEDS ORDERED: Potassium Chloride 20 MEQ TAB ONE (19:59)
[2022-09-16] MEDS ORDERED: NS 0.9% w/ 40 MEQ KCL 1,000 ML IV ONE (19:59)
[2022-09-16] MEDS ORDERED: Azithromycin 250 MG TAB ONE (22:16)
[2022-09-16] MEDS ORDERED: predniSONE 20 MG TAB ONE (22:16)
[2022-09-16] MEDS ORDERED: predniSONE 10 MG TAB ONE (22:16)
[2022-09-16] MEDS ORDERED: Ipratropium/Albuterol 3 ML NEB ONE (22:16)
[2022-09-17] MEDS ORDERED: Ondansetron PF 4 MG/2 ML Vial ONE (00:40)
[2022-09-17 00:56] LABS: SARS-CoV-2 NAA Rapid Test Not Detected (NotDetected)
[2022-09-17 01:41] LABS: ALT (SGPT) Less than 7 U/L (8-55); AST (SGOT) 14 U/L (5-34); Albumin 3.4 g/dL (3.4-4.8); Alkaline Phosphatase 96 U/L (40-110); Anion Gap 14 mmol/L (10-20); BUN (Urea Nitrogen) 8 mg/dL (9.8-20.1); Bilirubin, Total 0.8 mg/dL (0.2-1.2); Calc. Creatinine Clearance 0 mL/min (70-130); Calcium 8.9 mg/dL (7.8-10.44); Carbon Dioxide 24 mmol/L (23-31); Chloride 100 mmol/L (98-107); Estimated GFR 89; Globulin 3.2 g/dL (2.4-3.5); Glucose 149 mg/dL (83-110); Potassium 3.5 mmol/L (3.5-5.1); Protein, Total 6.6 g/dL (5.8-8.1); Sodium 134 mmol/L (136-145)
== END 2022-09-17 01:39 | disposition short-term general hospital (02) ==
LOC: MADERS 16:30
DX: A41.9 Sepsis, unspecified organism (principal); N39.0 Urinary tract infection, site not specified; H60.92 Unspecified otitis externa, left ear; H10.9 Unspecified conjunctivitis; E87.6 Hypokalemia; J06.9 Acute upper respiratory infection, unspecified; I10 Essential (primary) hypertension; E78.00 Pure hypercholesterolemia, unspecified; E11.9 Type 2 diabetes mellitus without complications; Z20.822 Contact with and (suspected) exposure to COVID-19; Z79.4 Long term (current) use of insulin; Z79.899 Other long term (current) drug therapy
CPT/HCPCS: 36415; 71045; 80053; 81003; 81015; 83605; 83735; 83880; 85025; 87040; 87081; 87086; 87430; 87804; 93005; 96365; 96366; 96367; 96375; J0696; J2405; J3480; J3490; J7030; J7512; J7620; U0002; U0003; U0005

== ENCOUNTER 2022-10-21 20:57 | Emergency (ER) | payer MEDICARE, MEDICAID | END 2022-10-21 21:35 | disposition home or self-care (01) | LOC: MADERS 20:57 | DX: T83.018A Breakdown (mechanical) of other urinary catheter, initial encounter (principal); S90.31XA Contusion of right foot, initial encounter; E11.9 Type 2 diabetes mellitus without complications; Z79.4 Long term (current) use of insulin; I10 Essential (primary) hypertension; Z79.899 Other long term (current) drug therapy; X50.1XXA Overexertion from prolonged static or awkward postures, initial encounter | CPT/HCPCS: 99283 ==